=== PATIENT | female | born 1985 | race Caucasian/White ===

== ENCOUNTER 2018-03-08 10:52 | Outpatient (CLI) | payer BC, OTHER ==
[~2018-03-08] VITALS: Ht 167.6 cm; Wt 120.7 kg
[2018-03-08 10:55] VITALS: BP 136/82
[2018-03-08] MEDS ORDERED: D5 LR IV SOLUTION 1,000 ML IV ONE (11:45)
[2018-03-08 11:51] LABS: BASOPHILS % (AUTO) 0 % (0-10); EOSINOPHILS # (AUTO) 0.1 10^3/uL (0.0-0.3); EOSINOPHILS % (AUTO) 1 % (0-10); HEMATOCRIT 31 % (35-52); LYMPHOCYTES # (AUTO) 2.6 X 10^3 (1.0-4.0); LYMPHOCYTES % (AUTO) 22 % (12-44); MEAN CORPUSCULAR HEMOGLOBIN 30 PG (25-34); MEAN CORPUSCULAR HGB CONC 36 G/DL (32-36); MEAN CORPUSCULAR VOLUME 84 FL (80-99); MONOCYTES # (AUTO) 0.8 X 10^3 (0.0-1.0); MONOCYTES % (AUTO) 7 % (0-12); NEUTROPHILS # (AUTO) 8.1 X 10^3 (1.8-7.8); NEUTROPHILS % (AUTO) 70 % (42-75); PLATELET COUNT 316 10^3/uL (130-400); RED BLOOD COUNT 3.69 10^6/uL (4.35-5.85); RED CELL DISTRIBUTION WIDTH 13.5 % (10.0-14.5); WHITE BLOOD COUNT 11.5 10^3/uL (4.3-11.0)
[2018-03-08 11:52] LABS: BILIRUBIN,URINE NEGATIVE (NEGATIVE); CLARITY,URINE CLEAR; COLOR,URINE YELLOW; GLUCOSE, URINE (UA) NEGATIVE (NEGATIVE); KETONES,URINE NEGATIVE (NEGATIVE); LEUKOCYTE ESTERASE ,URINE NEGATIVE (NEGATIVE); NITRITE,URINE NEGATIVE (NEGATIVE); PH,URINE 5 (5-9); PROTEIN,URINE 1+ (NEGATIVE); UROBILINOGEN,URINE 1 MG/DL (NORMAL)
[2018-03-08 12:14] LABS: BACTERIA,URINE NEGATIVE /HPF; RBC,URINE 25-50 /HPF
[2018-03-08 12:15] LABS: ALANINE AMINOTRANSFERASE 11 U/L (0-55); ALBUMIN 3.5 GM/DL (3.2-4.5); ALKALINE PHOSPHATASE 69 U/L (40-136); BILIRUBIN,TOTAL 0.2 MG/DL (0.1-1.0); BUN/CREATININE RATIO 17; CALCIUM 9.2 MG/DL (8.5-10.1); CARBON DIOXIDE 24 MMOL/L (21-32); CHLORIDE 107 MMOL/L (98-107); GFR ESTIMATED > 60; GLUCOSE 75 MG/DL (70-105); SODIUM 139 MMOL/L (135-145); TOTAL PROTEIN 6.5 GM/DL (6.4-8.2)
--- NOTE | 2018-03-08 13:17 | Diagnostic Imaging Report ---
INDICATION: Left flank pain with as well as hematuria. FINDINGS: Left kidney measures 11.2 x 5.9 x 5.6 cm. The cortical thickness and echogenicity is normal. There are no calculi identified. No hydronephrosis is seen. IMPRESSION: Unremarkable left renal ultrasound. Dictated by: Dictated on workstation # [id number]
[2018-03-08] MEDS ORDERED: CALC1TAB PO (13:36)
[2018-03-08] MEDS ORDERED: MULT1TAB69 PO (13:36)
[2018-03-08] MEDS ORDERED: PNV11TAB5 PO (13:36)
[2018-03-08] MEDS ORDERED: FLU QUADRIvalent (5+ YOA) 2018-2019 (AFLURIA) 0.5 ML IM ONE (14:15)
--- NOTE | 2018-03-09 16:17 | Physician Query-Final Dx ---
DESTINY SANTO 03/09/18 1617: Clinic Account Progress/Dx Physician Query: Please give diagnosis Please provide dx and weeks of gestation. Date of Service Mar 08, 2018 at 10:52 RASHMI SMALLS MD 03/10/18 0751: Clinic Account Progress/Dx DIAGNOSIS: Diagnosis Renal colic at 24 weeks gestation DESTINY SANTO Mar 09, 2018 16:17 RASHMI SMALLS MD Mar 10, 2018 07:51
== END 2018-03-08 14:11 | disposition home or self-care (01) ==
LOC: WSo 10:52 → LDRP 10:52 → WSo 14:11
PROVIDERS: ATTEND Obstetrics & Gynecology
DX: O99.89 Other specified diseases and conditions complicating pregnancy, childbirth and the puerperium (principal); N23 Unspecified renal colic; Z3A.24 24 weeks gestation of pregnancy
CPT/HCPCS: 36415; 76775; 80053; 81000; 85025; 87088; 96360; 96361; 99214

== ENCOUNTER → 2018-06-16 | Outpatient (CLI) | payer BC ==
[~2018-06-16] MED LIST: CALC1TAB PO; MULT1TAB69 PO; PNV11TAB5 PO
== END ==
LOC: LABNPT 10:08
PROVIDERS: ATTEND Obstetrics & Gynecology
DX: O14.03 Mild to moderate pre-eclampsia, third trimester (principal)
CPT/HCPCS: 82570; 84156

== ENCOUNTER 2018-06-23 07:00 | Inpatient (IN) | payer BC ==
[~2018-06-23] VITALS: Ht 167.6 cm; Wt 128.9 kg
--- NOTE | 2018-06-23 07:00 | NUR ---
KAITLYNN LU presented to unit via ambulation from home, accompanied by S.O., for INDUCTION OF LABOR. KAITLYNN LU weighed, gowned, voided, and to bed. EFHM and TOCO applied, VS taken. KAITLYNN LU oriented to bed controls, call light, TV, heat, and A/C controls.
[2018-06-23 07:20] VITALS: BP 109/62
[2018-06-23] MEDS ORDERED: D5 LR IV SOLUTION 1,000 ML IV ONE ×2 (07:24→12:02)
--- OUTSIDE RECORDS SUMMARY | 2018-06-23 07:24 | XMS REPORT | CCD ---
Author Author ENEDINA VIGIL Unknown Address [address] [facility] [address] [place] [id number] Care Team Providers Care Imaging Assistant Name Role Phone EDMUND JAMISON DO Attphys KEVIN KAUR, REMA Easley J., LEA NASST S., RAQUEL RAMIREZ NASST M., PAMELA Farrell NASST P., PARRISH NASST K., SHI Farrell NASST S., GRACIE Aguiar NASST Vital Signs Vital Sign Value Unit Date/Time Recent/Initial? Weight Measured 299.83 lbs 11/01/2015 17:30 Initial VS Height 66 in 11/01/2015 17:30 Initial VS BMI (Body Mass Index) 48.39 kg/m^2 11/01/2015 17:30 Initial VS BSA (Body Surface Area) 2.52 m^2 11/01/2015 17:30 Initial VS BP Systolic 111 mmHg 11/01/2015 17:30 Initial VS BP Diastolic 71 mmHg 11/01/2015 17:30 Initial VS Respiratory Rate 18 bpm 11/01/2015 17:30 Initial VS Heart Rate 101 bpm 11/01/2015 17:30 Initial VS O2 % BldC Oximetry 100 % 11/01/2015 17:30 Initial VS Body Temperature 99.9 degrees 11/01/2015 17:30 Initial VS BP Systolic 117 mmHg 11/03/2015 15:42 Most Recent VS BP Diastolic 78 mmHg 11/03/2015 15:42 Most Recent VS Respiratory Rate 18 bpm 11/03/2015 15:42 Most Recent VS Heart Rate 67 bpm 11/03/2015 15:42 Most Recent VS O2 % BldC Oximetry 96 % 11/03/2015 15:42 Most Recent VS Body Temperature 97.6 degrees 11/03/2015 15:42 Most Recent VS Allergies Allergy Code Allergy Type Reaction Status No Known Drug Allergies 0 No known drug allergies Active Procedures Procedure Code Procedure Type Date Resection of Appendix, Percutaneous Endoscopic Approach [id number] ICD-10 PCS 11/02/2015 CT ABD AND PELVIS W/CONTRAST 329168224 SNOMED CT 2015 COMPREHENSIVE METABOLIC PANEL 088600959 SNOMED CT 2015 CBC W/ AUTO DIFF (RFLX MAN DIFF IF IND) 7627836 SNOMED CT 11/03/2015 PATHOLOGY ORDER [id number] SNOMED CT 11/02/2015 COMPREHENSIVE METABOLIC PANEL 513145227 SNOMED CT 2015 CBC W/ AUTO DIFF (RFLX MAN DIFF IF IND) 3613969 SNOMED CT 11/02/2015 TEST [id number] [facility] CT 11/01/2015 UA ROUTINE C&S IF IND 384949831 SNOMED CT 11/01/2015 C REACTIVE PROTEIN 86277803 SNOMED CT 11/01/[address] 11/01/2015 [facility] COMPREHENSIVE METABOLIC PANEL 751114315 SNOMED CT 2015 CBC W/ AUTO DIFF (RFLX MAN DIFF IF IND) 5293131 SNOMED CT 11/01/2015 INCENTIVE SPIROMETRY EA [address] ^CBC W/AUTO DIFF 3899228 SNOMED CT 11/03/2015 ^CBC W/AUTO DIFF 7060567 SNOMED CT 11/02/2015 ^UA WITH MICRO 843937008 SNOMED CT 11/01/2015 ^CBC W/AUTO DIFF 2939214 SNOMED CT 11/01/2015 LOCM 300-349 MG/ML, PER ML 882152649 SNOMED CT 11/01/2015 OXYGEN/HOUR 559446112 SNOMED CT 11/03/2015 OXYGEN/HOUR 439400964 SNOMED CT 11/02/2015 History of Immunizations Unknown or Not Available. Problems Problem Code Start Date Resolved Date Status Acute appendicitis 79659050 11/01/2015 Active Status post bariatric surgery 708131633 11/02/2015 Active Results COMPREHENSIVE METABOLIC PANEL - Collect Date/Time: 11/03/2015 06:35 Test Name Code Test Result Test Units Test Ref Range GLUCOSE 2345-7 169 MG/DL L=70 H=100 SODIUM 2951-2 141 MEQ/L L=135 H=148 POTASSIUM 2823-3 4.4 MEQ/L L=3.5 H=5.3 CHLORIDE 2075-0 111 MEQ/L L=96 H=110 CO2 2028-9 21 MEQ/L L=22 H=29 BUN 3094-0 6 MG/DL L=8 H=22 CREATININE 2160-0 0.7 MG/DL L=0.6 H=1.6 SGOT/AST 1920-8 21 IU/L L=10 H=40 SGPT/ALT 1742-6 42 IU/L L=8 H=54 ALK PHOS 6768-6 76 IU/L L=35 H=115 TOTAL PROTEIN 2885-2 5.9 G/DL L=5.5 H=8.5 ALBUMIN 1751-7 3.3 G/DL L=3.1 H=5.4 TOTAL BILI 1975-2 0.3 MG/DL L=0.0 H=1.5 CALCIUM 32991-1 8.8 MG/DL L=8.2 H=10.6 AGE 30 yrs GFR NonAA 98 GFR AA 119 eGFR >60 N/A eGFR AA* >60 N/A COMPREHENSIVE METABOLIC PANEL - Collect Date/Time: 11/02/2015 06:25 Test Name Code Test Result Test Units Test Ref Range GLUCOSE 2345-7 83 MG/DL L=70 H=100 SODIUM 2951-2 142 MEQ/L L=135 H=148 POTASSIUM 2823-3 4.0 MEQ/L L=3.5 H=5.3 CHLORIDE 2075-0 110 MEQ/L L=96 H=110 CO2 2028-9 23 MEQ/L L=22 H=29 BUN 3094-0 5 MG/DL L=8 H=22 CREATININE 2160-0 0.7 MG/DL L=0.6 H=1.6 SGOT/AST 1920-8 23 IU/L L=10 H=40 SGPT/ALT 1742-6 42 IU/L L=8 H=54 ALK PHOS 6768-6 86 IU/L L=35 H=115 TOTAL PROTEIN 2885-2 5.2 G/DL L=5.5 H=8.5 ALBUMIN 1751-7 3.3 G/DL L=3.1 H=5.4 TOTAL BILI 1975-2 0.7 MG/DL L=0.0 H=1.5 CALCIUM 52938-1 8.3 MG/DL L=8.2 H=10.6 AGE 30 yrs GFR NonAA 98 GFR AA 119 eGFR >60 N/A eGFR AA* >60 N/A COMPREHENSIVE METABOLIC PANEL - Collect Date/Time: 11/01/2015 12:00 Test Name Code Test Result Test Units Test Ref Range GLUCOSE 2345-7 88 MG/DL L=70 H=100 SODIUM 2951-2 144 MEQ/L L=135 H=148 POTASSIUM 2823-3 3.7 MEQ/L L=3.5 H=5.3 CHLORIDE 2075-0 105 MEQ/L L=96 H=110 CO2 2028-9 26 MEQ/L L=22 H=29 BUN 3094-0 11 MG/DL L=8 H=22 CREATININE 2160-0 0.8 MG/DL L=0.6 H=1.6 SGOT/AST 1920-8 31 IU/L L=10 H=40 SGPT/ALT 1742-6 56 IU/L L=8 H=54 ALK PHOS 6768-6 99 IU/L L=35 H=115 TOTAL PROTEIN 2885-2 7.0 G/DL L=5.5 H=8.5 ALBUMIN 1751-7 4.1 G/DL L=3.1 H=5.4 TOTAL BILI 1975-2 0.5 MG/DL L=0.0 H=1.5 CALCIUM 67497-1 9.2 MG/DL L=8.2 H=10.6 AGE 30 yrs GFR NonAA 84 GFR AA 102 eGFR >60 N/A eGFR AA* >60 N/A LIPASE - Collect Date/Time: 11/01/2015 12:00 Test Name Code Test Result Test Units Test Ref Range LIPASE 3040-3 54 U/L L=8 H=78 CBC W/ AUTO DIFF (RFLX MAN DIFF IF IND) - Collect Date/Time: 11/03/2015 06:35 Test Name Code Test Result Test Units Test Ref Range WBC 70940-3 11.7 TH/CMM L=4.5 H=10.8 RBC 789-8 4.07 ML/CMM L=4.20 H=5.40 HGB 718-7 11.1 G/DL L=12.0 H=16.0 HCT 4544-3 36.1 % L=37.0 H=47.0 MCV 89 FL L=81 H=99 MCH 27.3 PG L=27.0 H=33.0 MCHC 30.7 G/DL L=31.0 H=36.0 RDW SD 47 FL L=36 H=50 RDW CV 14.5 % L=0.0 H=14.8 MPV 10.4 FL L=9.3 H=12.5 PLT 777-3 269 TH/CMM L=130 H=440 NRBC# 0.00 TH/CMM L=0.00 H=0.00 NRBC% 0.0 /100WBC L=0.0 H=2.0 %NEUT 85.4 % %LYMP 10.1 % %MONO 4.1 % %EOS 0.0 % %BASO 0.1 % #NEUT 10.01 TH/CMM L=2.10 H=8.20 #LYMP 1.19 TH/CMM L=0.90 H=5.20 #MONO 0.48 TH/CMM L=0.16 H=1.00 #EOS 0.00 TH/CMM L=0.00 H=0.80 #BASO 0.01 TH/CMM L=0.00 H=0.20 MANUAL DIFF NOT IND N/A CBC W/ AUTO DIFF (RFLX MAN DIFF IF IND) - Collect Date/Time: 11/02/2015 06:25 Test Name Code Test Result Test Units Test Ref Range WBC 29367-3 6.4 TH/CMM L=4.5 H=10.8 RBC 789-8 4.19 ML/CMM L=4.20 H=5.40 HGB 718-7 11.4 G/DL L=12.0 H=16.0 HCT 4544-3 36.5 % L=37.0 H=47.0 MCV 87 FL L=81 H=99 MCH 27.2 PG L=27.0 H=33.0 MCHC 31.2 G/DL L=31.0 H=36.0 RDW SD 46 FL L=36 H=50 RDW CV 14.6 % L=0.0 H=14.8 MPV 10.2 FL L=9.3 H=12.5 PLT 777-3 235 TH/CMM L=130 H=440 NRBC# 0.00 TH/CMM L=0.00 H=0.00 NRBC% 0.0 /100WBC L=0.0 H=2.0 %NEUT 53.7 % %LYMP 34.2 % %MONO 8.5 % %EOS 2.8 % %BASO 0.5 % #NEUT 3.41 TH/CMM L=2.10 H=8.20 #LYMP 2.17 TH/CMM L=0.90 H=5.20 #MONO 0.54 TH/CMM L=0.16 H=1.00 #EOS 0.18 TH/CMM L=0.00 H=0.80 #BASO 0.03 TH/CMM L=0.00 H=0.20 MANUAL DIFF NOT IND N/A CBC W/ AUTO DIFF (RFLX MAN DIFF IF IND) - Collect Date/Time: 11/01/2015 12:00 Test Name Code Test Result Test Units Test Ref Range WBC 79775-3 11.5 TH/CMM L=4.5 H=10.8 RBC 789-8 4.85 ML/CMM L=4.20 H=5.40 HGB 718-7 13.0 G/DL L=12.0 H=16.0 HCT 4544-3 41.3 % L=37.0 H=47.0 MCV 85 FL L=81 H=99 MCH 26.8 PG L=27.0 H=33.0 MCHC 31.5 G/DL L=31.0 H=36.0 RDW SD 45 FL L=36 H=50 RDW CV 14.6 % L=0.0 H=14.8 MPV 10.0 FL L=9.3 H=12.5 PLT 777-3 296 TH/CMM L=130 H=440 NRBC# 0.00 TH/CMM L=0.00 H=0.00 NRBC% 0.0 /100WBC L=0.0 H=2.0 %NEUT 80.2 % %LYMP 13.5 % %MONO 4.4 % %EOS 1.3 % %BASO 0.3 % #NEUT 9.22 TH/CMM L=2.10 H=8.20 #LYMP 1.55 TH/CMM L=0.90 H=5.20 #MONO 0.50 TH/CMM L=0.16 H=1.00 #EOS 0.15 TH/CMM L=0.00 H=0.80 #BASO 0.03 TH/CMM L=0.00 H=0.20 MANUAL DIFF NOT IND N/A UA ROUTINE C&S IF IND - Collect Date/Time: 11/01/2015 14:16 Test Name Code Test Result Test Units Test Ref Range COLOR YELLOW N/A NL: YELLOW APPEARANCE CLOUDY N/A NL: CLEAR SPEC GRAV >=1.030 N/A NL: 1.002 - 1.022 pH 5.5 N/A NL: 5 - 9 PROTEIN NEGATIVE N/A NL: NEGATIVE mg/dl GLUCOSE NEGATIVE N/A NL: NEGATIVE mg/dl KETONE >=80 N/A NL: NEGATIVE mg/dl BILIRUBIN SMALL N/A NL: NEGATIVE BLOOD NEGATIVE N/A NL: NEGATIVE NITRITE NEGATIVE N/A NL: NEGATIVE LEUK SCREEN NEGATIVE N/A NL: NEGATIVE MICRO INDICATED? SEE BELOW N/A WBC/HPF 0-5 N/A NL: NEGATIVE RBC/HPF NEGATIVE N/A NL: NEGATIVE CASTS/LPF NEGATIVE N/A NL: NEGATIVE CRYSTALS NEGATIVE N/A NL: NEGATIVE MUCOUS THRDS 1+ N/A NL: NEGATIVE BACTERIA FEW N/A NL: NEGATIVE EPITH CELLS 3+++ SQUAMOUS N/A NL: NEGATIVE TRICHOMONAS NEGATIVE N/A NL: NEGATIVE YEAST NEGATIVE N/A NL: NEGATIVE CULT SET UP? NO N/A C REACTIVE PROTEIN - Collect Date/Time: 11/01/2015 12:00 Test Name Code Test Result Test Units Test Ref Range C REACTIVE PROTEIN 1988-5 1.5 MG/DL L=0.0 H= 1.0 TEST - Collect Date/Time: 11/01/2015 12:00 Test Name Code Test Result Test Units Test Ref Range TEST 8-8 NEGATIVE N/A AMYLASE - Collect Date/Time: 11/01/2015 12:00 Test Name Code Test Result Test Units Test Ref Range AMYLASE 1798-8 69 IU/L L=25 H=125 Active Medications Medications Administered During Visit Medication Dose Units Frequency Route Date/ Time of Last Dose NS 1000 ML IV [PREDEFINED] (7983) CONT IV 11/03/2015 03:04 ZOSYN 3.375 GM IV [PREDEFINED] Q6H 10:16 FENTANYL AMP :50 mcg/ml 2ML AMP 50 MCG PRN Q 1 HR IVP 11/02/2015 02:47 MORPHINE INJ: 2MG/ML 1 ML SYRINGE 2 MG PRN IVP 11/02/2015 15:41 NORCO [HYDROCODONE/APAP] 10/325MG TAB 1 TAB PRN PO 11/03/2015 17:38 ONDANSETRON [ZOFRAN] INJ 4 MG/2 ML VIAL 4 MG PRN Q 4 HRS SIVP 11/02/2015 13:50 Encounters Encounter Diagnosis Diagnosis Code Start Date Unspecified acute appendicitis K3580 11/01/2015 Social History Smoking Status Code Start Date End Date Current some day smoker [id number] Patient Decision Aids Unknown or Not Available. Discharge Instructions You were admitted to [facility] on 11/01/2015 16:20 with a principal diagnosis of Unspecified acute appendicitis You had the following procedures done: Resection of Appendix, Percutaneous Endoscopic Approach You had the following tests done: AMYLASE C REACTIVE PROTEIN CBC W/ AUTO DIFF (RFLX MAN DIFF IF IND) CBC W/ AUTO DIFF (RFLX MAN DIFF IF IND) CBC W/ AUTO DIFF (RFLX MAN DIFF IF IND) COMPREHENSIVE METABOLIC PANEL COMPREHENSIVE METABOLIC PANEL COMPREHENSIVE METABOLIC PANEL LIPASE TEST UA ROUTINE C&S IF IND You were discharged from [facility] on 11/03/2015 18:15 Should you have any questions prior to discharge, please contact a member of your healthcare team. If you have left the hospital and have any questions, please contact your primary care physician. HOME DIET: As tolerated. ACTIVITY INSTRUCTIONS(list limitations): No heavy lifting, May Shower, AMBULATE FREQUENTLY SCRIPTS WRITTEN BY DOCTOR GIVEN TO PATIENT? LORTAB 10/325 AND LEVAQUIN 500MG FOLLOW UP CARE - SEE YOUR PHYSICIAN: FOLLOW UP WITH DR. JAMISON IN 7-10 DAY. CALL ON WEDNESDAY TO MAKE APPOINTMENT ([phone]) PRIMARY CARE PHYSICIAN OR PRACTITIONER: Edmund Jamison DO, . PERSONAL ITEMS RETURNED: Yes. INSTRUCTIONS GIVEN AND DISCHARGE TO: Patient, Spouse/SO. CHIEF COMPLAINT: STATES SHE BEGAN HAVING "CRAMPING PAIN" IN RIGHT LOWER ABDOMEN, DESCRIBES IT SIMILIAR TO MENSTRUAL CRAMPS. REPORTS HAVING CONSTIPATION OVER PAST 6 WEEKS, AND STATES SHE HAD TO GIVE HERSELF AN ENEMA YESTERDAY. Chief Complaint and Reason For Visit Chief Complaint Date of Onset ACUTE APPEND Function Status Unknown or Not Available. Plan of Care Unknown or Not Available. Referral/Transition of Care Unknown or Not Available.
--- OUTSIDE RECORDS SUMMARY | 2018-06-23 07:24 | XMS REPORT | CCD ---
Author Author LEONARD HANNA Organization Unknown Address [address] [facility] [address] [place] [address] Care Team Providers Care Sewer Digger Name Role Phone KEVIN KAUR, REMA Mueller Attphys REMA BROWN MD Prisurjamil Allergies Allergy Code Allergy Type Reaction Status No Known Drug Allergies 0 Drug allergy Active Active Medications Medication Code Dose Units Frequency Route Modification Start Date/Time Levaquin 500MG Oral Tablet 942605 500 MILLIGRAMS DAILY BY MOUTH 11/03/2015 12:03 Prescription Detail 500 MILLIGRAMS BY MOUTH DAILY X 5 DAYS HYDROcodone bitartrate-acetaminophen 10MG-325MG Oral Tablet 512996 1 TABLET NEEDED BY MOUTH 11/03/2015 12:02 Prescription Detail 1 TABLET BY MOUTH EVERY 4HRS NEEDED Multivitamin Oral Tablet 35585251348 1 EACH DAILY ORAL 11/03/2015 12:02 Prescription Detail 1 EACH ORAL DAILY Problems Problem Code Start Date Resolved Date Status Acute appendicitis 07131285 11/01/2015 Active Status post bariatric surgery 267692353 11/02/2015 Active Procedures Unknown or Not Available. Results Unknown or Not Available. Function Status Unknown or Not Available. History of Immunizations Unknown or Not Available. Plan of Treatment Unknown or Not Available. Social History Smoking Status Code Start Date End Date Current some day smoker [id number] Vital Signs Unknown or Not Available. Function Status Unknown or Not Available. Goals Unknown or Not Available. ASSESSMENTS Unknown or Not Available. Health Concerns Section Unknown or Not Available.
--- OUTSIDE RECORDS SUMMARY | 2018-06-23 07:25 | XMS REPORT ---
Author Author Eliel Kline [facility] Address [address] [place] [id number] Care Team Providers Care Kiln Door Repairer Name Role Phone Eliel Kline PCP Eliel Kline PreferredProvider Allergies and Adverse Reactions Name Reaction Notes amlodipine Plan of Treatment Planned Activity Comments Planned Date Planned Time Plan/Goal IM Injection 07/01/2014 12:00 AM Medications Active Name Start Date Estimated Completion Date SIG Comments metformin 500 mg oral tablet 07/29/2015 TAKE ONE TABLET BY MOUTH TWICE DAILY WITH MORNING AND EVENING MEALS Zyrtec-D 5-120 mg oral tablet extended release 12 hr 08/24/2017 take 1 tablet by oral route 2 times per day Name Start Date Expiration Date SIG Comments terbinafine HCl 250 mg oral tablet 05/08/2011 05/22/2011 take 1 tablet (250 mg) by oral route once daily for 14 days gabapentin 600 mg oral tablet 05/26/2011 12/22/2011 take 1 tablet (600 mg) by oral route 3 times per day for 30 days promethazine 25 mg oral tablet 02/17/2013 02/24/2013 take 1 tablet by oral route every 6 hours as needed for 7 days Tri-Sprintec (28) 0.18/0.215/0.25 mg-35 mcg (28) oral tablet 02/17/20132013 take 1 tablet by oral route once daily for 28 days atenolol 25 mg oral tablet 02/17/2013 02/12/2014 TAKE ONE TABLET BY MOUTH EVERY DAY lisinopril 20 mg oral tablet 02/17/2013 02/12/2014 TAKE ONE TABLET BY MOUTH EVERY DAY Provera 5 mg oral tablet 04/27/2014 06/06/2014 take 1 tablet by oral route QD for 10 days of each month. lisinopril 10 mg oral tablet 02/12/2015 03/14/2015 take 1 tablet (10 mg) by oral route once daily for 30 days atenolol 25 mg oral tablet 02/12/2015 03/14/2015 take 1 tablet (25 mg) by oral route once daily for 30 days metformin 500 mg oral tablet 05/15/2015 06/14/2015 take 1 tablet (500 mg) by oral route 2 times per day with morning and evening meals for 30 days Augmentin 875-125 mg oral tablet 06/12/2015 06/19/2015 take 1 tablet by oral route every 12 hours for 7 days Ortho Tri-Cyclen (28) 0.18/0.215/0.25 mg-35 mcg (28) oral tablet 06/12/2015 take 1 tablet by oral route once daily metformin 500 mg oral tablet 08/19/2015 TAKE ONE TABLET BY MOUTH TWICE DAILY WITH MORNING AND EVENING MEALS Medrol (Norman) 4 mg oral tablets,dose pack 10/06/2016 take as directed phentermine 37.5 mg oral tablet 11/13/2016 12/13/2016 take 1 tablet (37.5 mg) by oral route once daily before breakfast for 30 days Discontinued Name Start Date Discontinued Date SIG Comments hydrochlorothiazide 25 mg oral tablet 02/24/2011 05/08/2011 take 1 tablet (25 mg) by oral route once daily for 30 days amlodipine 10 mg oral tablet 04/22/2011 05/08/2011 take 1 tablet (10 mg) by oral route once daily for 30 days lisinopril 10 mg oral tablet 05/15/2015 10/06/2016 take 1 tablet (10 mg) by oral route once daily for 30 days atenolol 25 mg oral tablet 05/15/2015 10/06/2016 take 1 tablet (25 mg) by oral route once daily for 30 days omeprazole 40 mg oral capsule,delayed release(DR/EC) 10/06/2016 take 1 capsule (40 mg) by oral route once daily before a meal oxycodone 5 mg oral tablet 10/06/2016 take 1 tablet (5 mg) by oral route every 6 hours as needed Debrox 6.5 % otic drops 09/24/2015 10/06/2016 instill 5 drops in affected ear 2 times a day multivitamin oral tablet 10/06/2016 Flonase Allergy Relief 50 mcg/actuation nasal spray,suspension 10/21/20162017 spray 1 spray (50 mcg) in each nostril by intranasal route once daily gabapentin 300 mg oral capsule 08/24/2017 12/08/2017 take 1 capsule by oral route once a day (at bedtime) cyclobenzaprine 5 mg oral tablet 08/31/2017 12/08/2017 take 1 tablet (5 mg) by oral route 3 times per day for 7 days Problem List Description Status Onset Hypertension Active 12/29 Obesity Active PCOS (polycystic ovarian syndrome) Active 03/18/2015 Allergic rhinitis Active 08/30/2017 Vital Signs Date Time BP-Sys(mm[Hg] BP-Ester(mm[Hg]) HR(bpm) RR(rpm) Temp WT HT HC BMI BSA BMI Percentile O2 Sat(%) 12/08/2017 11:07:00 AM 118 mmHg 70 mmHg 113 bpm 97.9 F 251.312 lbs 66 in 40.5625 kg/m 2.304 m 100 % 08/31/2017 8:04:00 AM 130 mmHg 70 mmHg 84 bpm 97.8 F 245.5 lbs 66 in 39.62 kg/m2 2.28 m2 100 % 08/24/2017 1:01:00 PM 140 mmHg 70 mmHg 89 bpm 18 rpm 96.7 F 243 lbs 66 in 39.2208 kg/m 2.2656 m 96 % 11/13/2016 8:03:00 AM 120 mmHg 84 mmHg 81 bpm 16 rpm 96.4 F 228.375 lbs 66 in 36.86 kg/m2 2.20 m2 94 % 10/21/2016 10:32:00 AM 116 mmHg 70 mmHg 82 bpm 18 rpm 97.9 F 232.25 lbs 66 in 37.4857 kg/m 2.2149 m 99 % 10/16/2016 8:18:00 AM 120 mmHg 70 mmHg 78 bpm 16 rpm 97.2 F 234 lbs 66 in 37.77 kg/m2 2.22 m2 98 % 10/06/2016 9:31:00 AM 124 mmHg 68 mmHg 98 bpm 18 rpm 96.9 F 231 lbs 66 in 37.284 kg/m 2.2089 m 99 % 11/12/2015 10:49:00 AM 143 mmHg 97 mmHg 106 bpm 20 rpm 97 F 294 lbs 66 in 47.45 kg/m2 2.49 m2 09/24/2015 6:37:00 PM 122 mmHg 80 mmHg 104 bpm 97.2 F 320 lbs 66 in 51.6488 kg/m 2.5998 m 96 % 07/18/2015 3:03:00 PM 140 mmHg 80 mmHg 80 bpm 16 rpm 96.7 F 335 lbs 66 in 54.07 kg/m2 2.66 m2 98 % 06/12/2015 1:12:00 PM 130 mmHg 80 mmHg 115 bpm 18 rpm 97 F 346 lbs 66 in 55.8453 kg/m 2.7034 m 97 % 05/15/2015 12:59:00 PM 130 mmHg 90 mmHg 122 bpm 16 rpm 97.6 F 343 lbs 66 in 55.36 kg/m2 2.69 m2 97 % 04/15/2015 8:07:00 AM 140 mmHg 90 mmHg 98 bpm 16 rpm 97.6 F 345 lbs 66 in 55.6839 kg/m 2.6995 m 99 % 03/18/2015 9:18:00 AM 140 mmHg 88 mmHg 98 bpm 16 rpm 96.7 F 340 lbs 66 in 54.88 kg/m2 2.68 m2 95 % 02/12/2015 8:14:00 AM 150 mmHg 100 mmHg 105 bpm 18 rpm 96.7 F 342 lbs 66 in 55.1997 kg/m 2.6877 m 97 % 07/01/2014 3:02:00 PM 134 mmHg 100 mmHg 113 bpm 20 rpm 96.7 F 313 lbs 66 in 50.52 kg/m2 2.57 m2 97 % 04/26/2014 8:54:00 AM 147 mmHg 103 mmHg 100 bpm 96.4 F 313 lbs 66 in 50.519 kg/m 2.5712 m 04/12/2014 4:50:00 PM 144 mmHg 97 mmHg 106 bpm 97.9 F 310 lbs 66 in 50.03 kg/m2 2.56 m2 02/17/2013 9:07:00 AM 145 mmHg 88 mmHg 118 bpm 22 rpm 97 F 318 lbs 66 in 51.326 kg/m 2.5917 m 97 % 05/20/2011 2:15:00 PM 128 mmHg 75 mmHg 125 bpm 98.6 F 298 lbs 97 % 05/08/2011 10:01:00 AM 138 mmHg 85 mmHg 155 bpm 98.6 F 296.375 lbs 98 % 04/16/2011 4:17:00 PM 160 mmHg 98 mmHg 140 bpm 294 lbs 65 in 48.9237 kg/m 2.473 m 03/31/2011 2:52:00 PM 142 mmHg 93 mmHg 100 bpm 98.6 F 294 lbs 65 in 48.92 kg/m2 2.47 m2 03/31/2011 8:51:00 AM 130 bpm 97.5 F 293.5 lbs 99 % 03/12/2011 4:51:00 PM 122 mmHg 82 mmHg 130 bpm 97.4 F 290.25 lbs 97 % 09/16/2010 3:09:00 PM 135 mmHg 88 mmHg 142 bpm 98.1 F 307 lbs 96 % 08/29/2010 10:42:00 AM 130 mmHg 100 mmHg 136 bpm 98.6 F 304.5 lbs 96 % Social History Name Description Comments Alcohol Current some day Socially Tobacco Former smoker Social smoker UNEMPLOYEED History of Procedures Date Ordered Description Order Status 03/18/2015 12:00 AM COMPLETE CBC W/AUTO DIFF WBC Reviewed 03/18/2015 12:00 AM COMPREHEN METABOLIC PANEL Reviewed 03/31/2011 12:00 AM ASSAY THYROID STIM HORMONE Reviewed 03/31/2011 12:00 AM COMPLETE CBC AUTOMATED Reviewed 03/31/2011 12:00 AM ASSAY OF GONADOTROPIN (FSH) Reviewed 03/31/2011 12:00 AM ASSAY OF PROLACTIN Reviewed 03/31/2011 12:00 AM METABOLIC PANEL TOTAL CA Reviewed 03/31/2011 12:00 AM CLOT FACTOR XIII FIBRIN STAB Reviewed 03/31/2011 12:00 AM CLOT FACTOR XIII FIBRIN SCRN Reviewed 03/31/2011 12:00 AM CLOT FACTOR VIII VW RISTOCTN Reviewed 03/31/2011 12:00 AM PROTHROMBIN TIME Reviewed 03/31/2011 12:00 AM THROMBOPLASTIN TIME PARTIAL Reviewed 03/31/2011 12:00 AM ASSAY OF FREE TESTOSTERONE Reviewed 03/31/2011 12:00 AM ASSAY OF TOTAL TESTOSTERONE Reviewed 11/04/2015 12:00 AM EXTREMITY STUDY Reviewed 10/06/2016 12:00 AM STREP A ASSAY W/OPTIC Reviewed 05/25/2018 12:00 AM IMMUNIZATION ADMIN Reviewed 05/25/2018 12:00 AM TDAP VACCINE 7 YRS/> IM Reviewed 02/17/2013 12:00 AM URINE TEST Reviewed 04/20/2014 12:00 AM US EXAM PELVIC COMPLETE Reviewed 04/12/2014 12:00 AM COMPLETE CBC W/AUTO DIFF WBC Reviewed 04/12/2014 12:00 AM COMPREHEN METABOLIC PANEL Reviewed 04/12/2014 12:00 AM ASSAY THYROID STIM HORMONE Reviewed 04/12/2014 12:00 AM ASSAY OF PROLACTIN Reviewed 04/12/2014 12:00 AM ASSAY OF GONADOTROPIN (FSH) Reviewed 04/12/2014 12:00 AM LIPID PANEL Reviewed 04/12/2014 12:00 AM US EXAM PELVIC COMPLETE Reviewed 04/12/2014 12:00 AM US EXAM PELVIC LIMITED Reviewed 09/03/2010 12:00 AM COMPLETE CBC W/AUTO DIFF WBC Reviewed 09/03/2010 12:00 AM METABOLIC PANEL TOTAL CA Reviewed 09/03/2010 12:00 AM LIPID PANEL Reviewed 09/03/2010 12:00 AM ALANINE AMINO (ALT) (SGPT) Reviewed 09/03/2010 12:00 AM TRANSFERASE (AST) (SGOT) Reviewed 09/03/2010 12:00 AM ASSAY THYROID STIM HORMONE Reviewed 09/03/2010 12:00 AM Blood Pressure Check-no charge Reviewed 07/01/2014 12:00 AM Decadron injection Reviewed 07/01/2014 12:00 AM Depo-Medrol 40mg Reviewed 07/01/2014 12:00 AM Rocephin 1 gram [facility]#[id number] Reviewed 02/12/2015 12:00 AM Dietary Consult Reviewed Results Summary Date and Description Results 09/03/2010 10:26 AM TRIGLYCERIDES 209.0 mg/dLCHOLESTEROL 254.0 mg/dLHDL 32.0 mg /dLTOT CHOL/HDL 7.9 LDL (CALC) 180.0 mg/dLSGOT/AST 28.0 IU/LSGPT/ALT 44.0 IU/ LFREE T4 1.18 TSH 4.510 uIU/mLWBC 8.6 RBC 4.82 HGB 13.70 g/dLHCT 41.20 %MCV 86.0 fLMCH 28.40 pgMCHC 33.30 g/dLRDW SD 40 RDW CV 12.80 %MPV 9.80 fLPLT 337 NRBC# 0.00 NRBC% 0.0 %NEUT 60.30 %%LYMP 31.80 %%MONO 5.60 %%EOS 1.90 %%BASO 0.40 %#NEUT 5.16 #LYMP 2.72 #MONO 0.48 #EOS 0.16 #BASO 0.03 MANUAL DIFF NOT IND GLUCOSE 89.0 mg/dLSODIUM 141.0 mmol/LPOTASSIUM 4.10 mmol/LCHLORIDE 105.0 mmol/ LCO2 24.0 mmol/LBUN 14.0 mg/dLCREATININE 0.80 mg/dLCALCIUM 9.50 mg/dLAGE 25 GFR NonAA 87 GFR AA 105 eGFR >60 mL/min/1.73 m2eGFR AA* >60 03/31/2011 5:50 PM WBC 9.1 RBC 4.10 HGB 12.20 g/dLHCT 35.40 %MCV 86.0 fLMCH 29.80 pgMCHC 34.50 g/dLRDW SD 40 RDW CV 12.60 %MPV 9.20 fLPLT 345 NRBC# 0.00 NRBC% 0.0 %NEUT 66.50 %%LYMP 26.20 %%MONO 5.40 %%EOS 1.50 %%BASO 0.40 %#NEUT 6.02 #LYMP 2.37 #MONO 0.49 #EOS 0.14 #BASO 0.04 MANUAL DIFF NOT IND PROTIME 9.90 secsINR 1.0 PTT 23.0 secsFSH 4.90 mIU/mLTSH 1.320 uIU/mLGLUCOSE 93.0 mg/ dLSODIUM 141.0 mmol/LPOTASSIUM 3.30 mmol/LCHLORIDE 103.0 mmol/LCO2 25.0 mmol/ LBUN 12.0 mg/dLCREATININE 0.80 mg/dLCALCIUM 9.70 mg/dLAGE 25 GFR NonAA 87 GFR AA 105 eGFR >60 mL/min/1.73 m2eGFR AA* >60 04/12/2014 5:55 PM WBC 10.5 RBC 4.86 HGB 12.80 g/dLHCT 38.50 %MCV 79.0 fLMCH 26.30 pgMCHC 33.20 g/dLRDW SD 38 RDW CV 13.40 %MPV 9.0 fLPLT 405 NRBC# 0.00 NRBC % 0.0 %NEUT 70.90 %%LYMP 24.0 %%MONO 3.70 %%EOS 1.10 %%BASO 0.30 %#NEUT 7.41 # LYMP 2.51 #MONO 0.39 #EOS 0.12 #BASO 0.03 MANUAL DIFF NOT IND TRIGLYCERIDES 213.0 mg/dLCHOLESTEROL 240.0 mg/dLHDL 37.0 mg/dLTOT CHOL/HDL 6.5 LDL (CALC) 160.0 mg/dLGLUCOSE 86.0 mg/dLSODIUM 141.0 mmol/LPOTASSIUM 4.0 mmol/LCHLORIDE 105.0 mmol/LCO2 23.0 mmol/LBUN 14.0 mg/dLCREATININE 0.80 mg/dLSGOT/AST 18.0 IU/ LSGPT/ALT 20.0 IU/LALK PHOS 94.0 IU/LTOTAL PROTEIN 8.0 g/dLALBUMIN 4.30 g/ dLTOTAL BILI 0.50 mg/dLCALCIUM 9.80 mg/dLAGE 28 GFR NonAA 85 GFR AA 103 eGFR 60 eGFR AA* 60 FSH 4.50 mIU/mLTSH 2.440 uIU/mLProlactin 7.60 ng/mL 03/19/2015 7:25 AM WBC 9.4 RBC 4.83 HGB 13.40 g/dLHCT 40.80 %MCV 85.0 fLMCH 27.70 pgMCHC 32.80 g/dLRDW SD 42 RDW CV 13.60 %MPV 9.30 fLPLT 322 NRBC# 0.00 NRBC% 0.0 %NEUT 55.30 %%LYMP 37.40 %%MONO 5.30 %%EOS 1.60 %%BASO 0.40 %#NEUT 5.17 #LYMP 3.50 #MONO 0.50 #EOS 0.15 #BASO 0.04 MANUAL DIFF NOT IND GLUCOSE 87.0 mg/dLSODIUM 141.0 mmol/LPOTASSIUM 3.90 mmol/LCHLORIDE 105.0 mmol/LCO2 25.0 mmol/LBUN 13.0 mg/dLCREATININE 0.80 mg/dLSGOT/AST 25.0 IU/LSGPT/ALT 39.0 IU/ LALK PHOS 100.0 IU/LTOTAL PROTEIN 7.70 g/dLALBUMIN 4.20 g/dLTOTAL BILI 0.30 mg/ dLCALCIUM 9.30 mg/dLAGE 29 GFR NonAA 85 GFR AA 103 eGFR >60 mL/min/1.73meGFR AA* >60 10/06/2016 9:55 AM STREP SCREEN NEGATIVE History Of Immunizations Name Date Admin Mfg Name Mfg Code Trade Name Lot# Route Inj Vis Given Vis Pub CVX Tdap 05/25/2018 [employer] SKB BOOSTRIX [id number] Intramuscular Left Deltoid 06/08/2018 06/21/2017 115 History of Past Illness Name Date of Onset Comments Hypertension 12/29 Obesity Abnormal Uterine Bleeding 03/31/2011 PCOS (polycystic ovarian syndrome) 03/18/2015 Hypertension, Benign Essential Sep 03 2010 10:11AM Obesity Sep 03 2010 10:11AM General Medical Exam, Adult Aug 29 2010 10:43AM Multiple Seborrheic Keratosis Aug 29 2010 10:43AM Allergic rhinitis 08/30/2017 Dysfunctional Uterine Bleeding Mar 12 2011 4:54PM Abnormal Uterine Bleeding Mar 31 2011 2:56PM Hypertension Mar 31 2011 2:56PM Obesity Mar 31 2011 2:56PM Tachycardia Apr 16 2011 4:16PM Abnormal Uterine Bleeding Apr 16 2011 4:16PM Hypertension Apr 16 2011 4:16PM Obesity Apr 16 2011 4:16PM Hypertension May 20 2011 2:12PM Abnormal Uterine Bleeding Mar 31 2011 8:49AM Allergic reaction to medication May 08 2011 9:57AM Routine gynecological examination Dec 01 2011 4:05PM Screening Examination for Breast Cancer Dec 01 2011 4:05PM Pap Smear Dec 01 2011 4:05PM Hypertension Feb 17 2013 9:10AM Nausea Feb 17 2013 9:10AM Contraception, Oral Prescription Feb 17 2013 9:10AM Abnormal Uterine Bleeding Apr 12 2014 4:59PM Obesity, morbid, BMI 50 or higher Apr 12 2014 4:59PM Abnormal uterine bleeding Apr 13 2014 12:52PM Abnormal Uterine Bleeding Apr 26 2014 8:59AM Hypertension Apr 26 2014 8:59AM Obesity Apr 26 2014 8:59AM Maxillary Sinusitis, Acute Jul 01 2014 3:06PM Throat Pain Jul 01 2014 3:06PM Cerumen impaction, bilateral Jul 01 2014 3:06PM Hypertension Feb 12 2015 8:17AM BMI 50.0-59.9, adult Feb 12 2015 8:17AM Dietary counseling and surveillance Feb 12 2015 8:17AM Hypertension Mar 18 2015 9:20AM Obesity Mar 18 2015 9:20AM PCOS (polycystic ovarian syndrome) Mar 18 2015 9:20AM BMI 50.0-59.9, adult Mar 18 2015 9:20AM Dietary counseling and surveillance Mar 18 2015 9:20AM Hypertension Apr 15 2015 8:09AM Obesity Apr 15 2015 8:09AM PCOS (polycystic ovarian syndrome) Apr 15 2015 8:09AM BMI 50.0-59.9, adult Apr 15 2015 8:09AM Dietary counseling and surveillance Apr 15 2015 8:09AM Essential hypertension May 15 2015 1:01PM Morbid obesity, unspecified obesity type May 15 2015 1:01PM PCOS (polycystic ovarian syndrome) May 15 2015 1:01PM BMI 50.0-59.9, adult May 15 2015 1:01PM Dietary counseling and surveillance May 15 2015 1:01PM Essential hypertension Jun 12 2015 1:14PM Morbid obesity, unspecified obesity type Jun 12 2015 1:14PM PCOS (polycystic ovarian syndrome) Jun 12 2015 1:14PM BMI 50.0-59.9, adult Jun 12 2015 1:14PM Dietary counseling and surveillance Jun 12 2015 1:14PM Acute frontal sinusitis, recurrence not specified Jun 12 2015 1:14PM Essential hypertension Jul 18 2015 3:05PM Morbid obesity, unspecified obesity type Jul 18 2015 3:05PM PCOS (polycystic ovarian syndrome) Jul 18 2015 3:05PM BMI 50.0-59.9, adult Jul 18 2015 3:05PM Dietary counseling and surveillance Jul 18 2015 3:05PM Impacted cerumen of left ear Sep 24 2015 6:44PM Leg pain, posterior, right Nov 04 2015 4:27PM Sore throat Oct 06 2016 9:33AM Post-nasal drainage Oct 21 2016 10:34AM Seasonal allergic rhinitis due to other allergic trigger Oct 21 2016 10:34AM Polyphagia Oct 16 2016 8:19AM Dietary counseling and surveillance Oct 16 2016 8:19AM BMI 37.0-37.9, adult Oct 16 2016 8:19AM Polyphagia Nov 13 2016 8:05AM Dietary counseling and surveillance Nov 13 2016 8:05AM BMI 36.0-36.9,adult Nov 13 2016 8:05AM Allergic rhinitis, unspecified seasonality, unspecified trigger Aug 24 2017 1 :04PM Lumbar pain with radiation down right leg Aug 24 2017 1:04PM Mechanical low back pain Aug 31 2017 8:10AM Trochanteric bursitis of right hip Aug 31 2017 8:10AM Spasm of muscle of lower back Aug 31 2017 8:10AM Pelvic girdle weakness Aug 31 2017 8:10AM Strain of back, initial encounter Dec 08 2017 11:11AM Mechanical low back pain Dec 08 2017 11:11AM Trochanteric bursitis of right hip Dec 08 2017 11:11AM Spasm of muscle of lower back Dec 08 2017 11:11AM Pelvic girdle weakness Dec 08 2017 11:11AM Need for Tdap vaccination Jun 08 2018 3:22PM Payers Insurance Name Company Name Plan Name Plan Number Policy Number Policy Group Number Start Date BCBS Bcbs [facility] [id number] N/A [facility] [id number] Sunday, 2010 [facility] [id number] [facility] [id number] N/A [facility] [id number] [facility] [id number] N/A History of Encounters Visit Date Visit Type Provider 05/25/2018 Office visit Eliel Kline APRN 12/08/2017 Office visit Cam Marieea DO 08/31/2017 Office visit Cam Bermudez DO 08/24/2017 Office visit Eliel Kline APRN 11/13/2016 Office visit Eliel Kline APRN 10/21/2016 Office visit Charlotte Rossi DIAGRAM CLERK 10/16/2016 Office visit Eliel Kline DIAGRAM CLERK 10/06/2016 Office visit Charlotte Rossi DIAGRAM CLERK 11/12/2015 Surgery Edmund Bouman DO 11/04/2015 Hospital Edmund Bouman DO 11/04/2015 Voided Edmund Bouman DO 11/02/2015 Hospital Edmund Bouman DO 11/01/2015 Hospital Edmund Bouman DO 09/24/2015 Office visit Eliel Kline DIAGRAM CLERK 07/18/2015 Office visit Eliel Kline DIAGRAM CLERK 06/12/2015 Office visit Eliel Kline DIAGRAM CLERK 05/15/2015 Office visit Eliel Kline DIAGRAM CLERK 04/15/2015 Office visit Eliel Kline DIAGRAM CLERK 03/18/2015 Office visit Eliel Kline DIAGRAM CLERK 02/12/2015 Office visit Eliel Kline DIAGRAM CLERK 07/01/2014 Office visit Anahi Walker DIAGRAM CLERK 04/26/2014 Office visit Ishan Maloney MD 04/12/2014 Office visit 04/12/2014 Office visit Ishan Maloney MD 02/17/2013 Office visit Eliel Kline APRN 05/20/2011 Office visit Manoj Macario MD 05/08/2011 Office visit Manoj Macario MD 04/16/2011 Office visit Ishan Maloney MD 03/31/2011 Office visit 03/31/2011 Office visit Ishan Maloney MD 03/31/2011 Office visit Manoj Macario MD 03/12/2011 Office visit Manoj Macario MD 09/23/2010 Voided Manoj Macario MD 09/16/2010 Office visit Manoj Macario MD 09/03/2010 Nurse visit Manoj Macario MD 08/29/2010 Office visit Manoj Macario MD
--- OUTSIDE RECORDS SUMMARY | 2018-06-23 07:26 | XMS REPORT ---
Author Author Cam Bermudez Organization [facility] Address [address] [place] [id number] Care Team Providers Care Ambulette Driver Name Role Phone Cam Bermudez PCP Eliel Kline PreferredProvider Allergies and Adverse [...] bpm 97.2 F 320 lbs 66 in 51.65 kg/m2 2.60 m2 96 % 07/18/2015 3:03:00 PM 140 mmHg 80 mmHg 80 bpm 16 rpm 96.7 F 335 lbs 66 in 54.0699 kg/m 2.6601 m 98 % 06/12/2015 1:12:00 PM 130 mmHg 80 mmHg 115 bpm 18 rpm 97 F 346 lbs 66 in 55.85 kg/m2 2.70 m2 97 % 05/15/2015 12:59:00 PM 130 mmHg 90 mmHg 122 bpm 16 rpm 97.6 F 343 lbs 66 in 55.3611 kg/m 2.6916 m 97 % 04/15/2015 8:07:00 AM 140 mmHg 90 mmHg 98 bpm 16 rpm 97.6 F 345 lbs 66 in 55.68 kg/m2 2.70 m2 99 % 03/18/2015 9:18:00 AM 140 mmHg 88 mmHg 98 bpm 16 rpm 96.7 F 340 lbs 66 in 54.8769 kg/m 2.6799 m 95 % 02/12/2015 8:14:00 AM 150 mmHg 100 mmHg 105 bpm 18 rpm 96.7 F 342 lbs 66 in 55.20 kg/m2 2.69 m2 97 % 07/01/2014 3:02:00 PM 134 mmHg 100 mmHg 113 bpm 20 rpm 96.7 F 313 lbs 66 in 50.519 kg/m 2.5712 m 97 % 04/26/2014 8:54:00 AM 147 mmHg 103 mmHg 100 bpm 96.4 F 313 lbs 66 in 50.52 kg/m2 2.57 m2 04/12/2014 4:50:00 PM 144 mmHg 97 mmHg 106 bpm 97.9 F 310 lbs 66 in 50.0348 kg/m 2.5589 m 02/17/2013 9:07:00 AM 145 mmHg 88 mmHg 118 bpm 22 rpm 97 F 318 lbs 66 in 51.33 kg/m2 2.59 m2 97 % 05/20/2011 2:15:00 PM 128 mmHg [...] 12:00 AM STREP A ASSAY W/OPTIC Reviewed 02/17/2013 12:00 AM URINE TEST Reviewed [...] Reviewed 07/01/2014 12:00 AM Rocephin 1 gram [facility]#[id number] Reviewed 02/12/2015 12:00 AM Dietary Consult Reviewed [...] AM STREP SCREEN NEGATIVE History Of Immunizations Not available. History of Past Illness Name Date of [...] Pelvic girdle weakness Dec 08 2017 11:11AM Payers Insurance Name Company Name Plan Name Plan Number Policy Number Policy Group Number Start Date BCBS [facility] [id number] N/A [facility] Benefit Services [facility] [id number] Sunday, 2010 [facility] [id number] N/A [facility] [id number] N/A History of Encounters Visit Date Visit Type Provider 12/08/2017 Office visit Cam Bermudez DO 08/31/2017 Office visit Cam Bermudez DO 08/24/2017 Office visit Eliel Kline TAPE FOLDING MACHINE OPERATOR 11/13/2016 Office visit Eliel Kline TAPE FOLDING MACHINE OPERATOR 10/21/2016 Office visit Charlotte Rossi TAPE FOLDING MACHINE OPERATOR 10/16/2016 Office visit Eliel Kline TAPE FOLDING MACHINE OPERATOR 10/06/2016 Office visit Charlotte Rossi TAPE FOLDING MACHINE OPERATOR 11/12/2015 Surgery Edmund Bouman DO 11/04/2015 Hospital Edmund Bouman DO 11/04/2015 Voided Edmund Bouman DO 11/02/2015 Hospital Edmund Bouman DO 11/01/2015 Hospital Edmund Bouman DO 09/24/2015 Office visit Eliel Kline TAPE FOLDING MACHINE OPERATOR 07/18/2015 Office visit Eliel Kline TAPE FOLDING MACHINE OPERATOR 06/12/2015 Office visit Eliel Kline TAPE FOLDING MACHINE OPERATOR 05/15/2015 Office visit Eliel Kline TAPE FOLDING MACHINE OPERATOR 04/15/2015 Office visit Eliel Kline TAPE FOLDING MACHINE OPERATOR 03/18/2015 Office visit Eliel Kline TAPE FOLDING MACHINE OPERATOR 02/12/2015 Office visit Eliel Kline TAPE FOLDING MACHINE OPERATOR 07/01/2014 Office visit Anahi Aaron TAPE FOLDING MACHINE OPERATOR 04/26/2014 Office visit Ishan Maloney MD 04/12/2014 Office visit 04/12/2014 Office visit Ishan Maloney MD 02/17/2013 Office visit Eliel Kline TAPE FOLDING MACHINE OPERATOR 05/20/2011 Office visit Manoj Macario MD 05/08/2011 [...]
--- OUTSIDE RECORDS SUMMARY | 2018-06-23 07:26 | XMS REPORT ---
Author Author Eliel Kline [facility] Address [address] [place], [place] [id number] Care Team Providers Care Highway Commissioner Name Role Phone Eliel Kline PCP Allergies and Adverse Reactions Name Reaction Notes amlodipine Plan of Treatment Planned Activity Comments Planned Date Planned Time Plan/Goal EXTREMITY STUDY 11/04/2015 12:00 AM THER/PROPH/DIAG INJ SC/IM 07/01/2014 12:00 AM Medications Active Name Start Date Estimated Completion Date SIG Comments lisinopril 10 mg oral tablet 05/15/2015 take 1 tablet (10 mg) by oral route once daily for 30 days atenolol 25 mg oral tablet 05/15/2015 take 1 tablet (25 mg) by oral route once daily for 30 days metformin 500 mg oral tablet 07/29/2015 TAKE ONE TABLET BY MOUTH TWICE DAILY WITH MORNING AND EVENING MEALS omeprazole 40 mg oral capsule,delayed release(DR/EC) take 1 capsule (40 mg) by oral route once daily before a meal oxycodone 5 mg oral tablet take 1 tablet (5 mg) by oral route every 6 hours as needed Debrox 6.5 % otic drops 09/24/2015 instill 5 drops in affected ear 2 times a day Name Start Date Expiration Date SIG [...] TWICE DAILY WITH MORNING AND EVENING MEALS Discontinued Name Start Date Discontinued Date SIG Comments hydrochlorothiazide 25 mg oral tablet 02/24/2011 05/08/2011 take 1 tablet (25 mg) by oral route once daily for 30 days amlodipine 10 mg oral tablet 04/22/2011 05/08/2011 take 1 tablet (10 mg) by oral route once daily for 30 days Problem List Description Status Onset Hypertension Active 12/29 Obesity Active PCOS (polycystic ovarian syndrome) Active 03/18/2015 Vital Signs Date Time BP-Sys(mm[Hg] BP-Ester(mm[Hg]) HR(bpm) RR(rpm) Temp WT HT HC BMI BSA BMI Percentile O2 Sat(%) 09/24/2015 6:37:00 PM 122 mmHg 80 mmHg [...] 12:00 AM COMPLETE CBC W/AUTO DIFF WBC Returned 03/18/2015 12:00 AM COMPREHEN METABOLIC PANEL Returned 03/31/2011 12:00 AM ASSAY THYROID STIM HORMONE [...] 12:00 AM ASSAY OF TOTAL TESTOSTERONE Reviewed 02/17/2013 12:00 AM URINE TEST Reviewed 04/20/2014 12:00 AM US EXAM PELVIC COMPLETE Returned 04/12/2014 12:00 AM COMPLETE CBC W/AUTO DIFF WBC Returned 04/12/2014 12:00 AM COMPREHEN METABOLIC PANEL Returned 04/12/2014 12:00 AM ASSAY THYROID STIM HORMONE Returned 04/12/2014 12:00 AM ASSAY OF PROLACTIN Returned 04/12/2014 12:00 AM ASSAY OF GONADOTROPIN (FSH) Returned 04/12/2014 12:00 AM LIPID PANEL Returned 04/12/2014 12:00 AM US EXAM PELVIC COMPLETE [...] Reviewed 07/01/2014 12:00 AM Rocephin 1 gram [facility]#[id number] Reviewed Results Summary Data and Description Results 09/03/2010 10:26 AM TRIGLYCERIDES 209.0 mg/dLCHOLESTEROL 254.0 mg/dLHDL 32.0 mg /dLLDL (CALC) 180.0 mg/dLSGOT/AST 28.0 IU/LSGPT/ALT 44.0 IU/LTSH 4.510 uIU/ mLWBC 8.6 RBC 4.82 HGB 13.70 g/dLHCT 41.20 %MCV 86.0 fLMCH 28.40 pgMCHC 33.30 g/ dLRDW CV 12.80 %MPV 9.80 fLPLT 337 %NEUT 60.30 %%LYMP 31.80 %%MONO 5.60 %%EOS 1.90 %%BASO 0.40 %#NEUT 5.16 #LYMP 2.72 #MONO 0.48 #EOS 0.16 #BASO 0.03 GLUCOSE 89.0 mg/dLSODIUM 141.0 mmol/LPOTASSIUM 4.10 mmol/LCHLORIDE 105.0 mmol/LCO2 24.0 mmol/LBUN 14.0 mg/dLCREATININE 0.80 mg/dLCALCIUM 9.50 mg/dLeGFR >60 mL/min/1.73 m2 03/31/2011 5:50 PM WBC 9.1 RBC 4.10 HGB 12.20 g/dLHCT 35.40 %MCV 86.0 fLMCH 29.80 pgMCHC 34.50 g/dLRDW CV 12.60 %MPV 9.20 fLPLT 345 %NEUT 66.50 %%LYMP 26.20 %%MONO 5.40 %%EOS 1.50 %%BASO 0.40 %#NEUT 6.02 #LYMP 2.37 #MONO 0.49 #EOS 0.14 #BASO 0.04 PROTIME 9.90 secsINR 1.0 PTT 23.0 secsFSH 4.90 mIU/mLTSH 1.320 uIU/mLGLUCOSE 93.0 mg/dLSODIUM 141.0 mmol/LPOTASSIUM 3.30 mmol/LCHLORIDE 103.0 mmol/LCO2 25.0 mmol/LBUN 12.0 mg/dLCREATININE 0.80 mg/dLCALCIUM 9.70 mg/dLeGFR > 60 mL/min/1.73 m2 04/12/2014 5:55 PM WBC 10.5 RBC 4.86 HGB 12.80 g/dLHCT 38.50 %MCV 79.0 fLMCH 26.30 pgMCHC 33.20 g/dLRDW CV 13.40 %MPV 9.0 fLPLT 405 %NEUT 70.90 %%LYMP 24.0 % %MONO 3.70 %%EOS 1.10 %%BASO 0.30 %#NEUT 7.41 #LYMP 2.51 #MONO 0.39 #EOS 0.12 # BASO 0.03 TRIGLYCERIDES 213.0 mg/dLCHOLESTEROL 240.0 mg/dLHDL 37.0 mg/dLLDL ( CALC) 160.0 mg/dLGLUCOSE 86.0 mg/dLSODIUM 141.0 mmol/LPOTASSIUM 4.0 mmol/ LCHLORIDE 105.0 mmol/LCO2 23.0 mmol/LBUN 14.0 mg/dLCREATININE 0.80 mg/dLSGOT/ AST 18.0 IU/LSGPT/ALT 20.0 IU/LALK PHOS 94.0 IU/LTOTAL PROTEIN 8.0 g/dLALBUMIN 4.30 g/dLTOTAL BILI 0.50 mg/dLCALCIUM 9.80 mg/dLeGFR 60 FSH 4.50 mIU/mLTSH 2.440 uIU/mLProlactin 7.60 ng/mL 03/19/2015 7:25 AM WBC 9.4 RBC 4.83 HGB 13.40 g/dLHCT 40.80 %MCV 85.0 fLMCH 27.70 pgMCHC 32.80 g/dLRDW CV 13.60 %MPV 9.30 fLPLT 322 %NEUT 55.30 %%LYMP 37.40 %%MONO 5.30 %%EOS 1.60 %%BASO 0.40 %#NEUT 5.17 #LYMP 3.50 #MONO 0.50 #EOS 0.15 #BASO 0.04 GLUCOSE 87.0 mg/dLSODIUM 141.0 mmol/LPOTASSIUM 3.90 mmol/ LCHLORIDE 105.0 mmol/LCO2 25.0 mmol/LBUN 13.0 mg/dLCREATININE 0.80 mg/dLSGOT/ AST 25.0 IU/LSGPT/ALT 39.0 IU/LALK PHOS 100.0 IU/LTOTAL PROTEIN 7.70 g/ dLALBUMIN 4.20 g/dLTOTAL BILI 0.30 mg/dLCALCIUM 9.30 mg/dLeGFR >60 mL/min/1.73m History Of Immunizations Not available. History of Past Illness Name Date of Onset Comments Hypertension 12/29 Obesity Abnormal Uterine Bleeding 03/31/2011 PCOS (polycystic ovarian syndrome) 03/18/2015 Hypertension, Benign Essential Sep 03 2010 10:11AM Obesity Sep 03 2010 10:11AM General Medical Exam, Adult Aug 29 2010 10:43AM Multiple Seborrheic Keratosis Aug 29 2010 10:43AM Dysfunctional Uterine Bleeding Mar 12 2011 4:54PM [...] pain, posterior, right Nov 04 2015 4:27PM Payers Insurance Name Company Name Plan Name Plan Number Policy Number Policy Group Number Start Date [facility] [id number] N/A [facility] Benefit Services [facility] Benefit Services [id number] Sunday, 2010 [facility] [id number] N/A [facility] [id number] N/A History of Encounters Visit Date Visit Type Provider 09/24/2015 Office visit Eliel Kline DIRECT RESPONSE CONSULTANT 07/18/2015 Office visit Eliel Kline DIRECT RESPONSE CONSULTANT 06/12/2015 Office visit Eliel Kline DIRECT RESPONSE CONSULTANT 05/15/2015 Office visit Eliel Kline DIRECT RESPONSE CONSULTANT 04/15/2015 Office visit Eliel Kline DIRECT RESPONSE CONSULTANT 03/18/2015 Office visit Eliel Kline DIRECT RESPONSE CONSULTANT 02/12/2015 Office visit Eliel Kline DIRECT RESPONSE CONSULTANT 07/01/2014 Office visit Anahi Walker DIRECT RESPONSE CONSULTANT 04/26/2014 Office visit Ishan Maloney MD 04/12/2014 Office visit 04/12/2014 Office visit Ishan Maloney MD 02/17/2013 Office visit Eliel Kline DIRECT RESPONSE CONSULTANT 05/20/2011 Office visit Manoj Macario MD 05/08/2011 [...]
--- OUTSIDE RECORDS SUMMARY | 2018-06-23 07:27 | XMS REPORT ---
Author Author Eliel Kline [facility] Address [address] [place], [place] [phone] Care Team Providers Care Prep Manager Name Role Phone Eliel Kline PCP Allergies and Adverse Reactions Name Reaction Notes amlodipine Plan of Treatment Planned Activity Comments Planned Date Planned Time Plan/Goal THER/PROPH/DIAG INJ SC/IM 07/01/2014 12:00 AM Medications [...] morning and evening meals for 30 days Name Start Date Expiration Date SIG Comments [...] oral route once daily for 30 days Discontinued Name Start Date [...] HC BMI BSA BMI Percentile O2 Sat(%) 05/15/2015 12:59:00 PM 130 mmHg 90 mmHg [...] mmHg 140 bpm 294 lbs 65 in 48.92 kg/m2 2.47 m2 03/31/2011 2:52:00 PM 142 mmHg 93 mmHg 100 bpm 98.6 F 294 lbs 65 in 48.9237 kg/m 2.473 m 03/31/2011 8:51:00 AM 130 bpm 97.5 F [...] Reviewed 07/01/2014 12:00 AM Rocephin 1 gram [facility]#[id number] Reviewed Results Summary Data and Description Results [...] counseling and surveillance May 15 2015 1:01PM Payers Insurance Name Company Name Plan Name Plan Number Policy Number Policy Group Number [id number] N[facility]A [facility] Benefit [facility] Benefit Services [id number] Sunday, 2010 [facility] [id number] N/A [facility] [id number] N/A History of Encounters Visit Date Visit Type Provider 05/15/2015 Office visit Eliel Kline IRON WORKER APPRENTICE 04/15/2015 Office visit Eliel Kline IRON WORKER APPRENTICE 03/18/2015 Office visit Eliel Kline IRON WORKER APPRENTICE 02/12/2015 Office visit Eliel Kline IRON WORKER APPRENTICE 07/01/2014 Office visit Anahi Walker IRON WORKER APPRENTICE 04/26/2014 Office visit Ishan Maloney MD 04/12/2014 Office visit Ishan Maloney MD 02/17/2013 Office visit Eliel Kline IRON WORKER APPRENTICE 05/20/2011 Office visit Manoj Macario MD 05/08/2011 Office visit Manoj Macario MD 04/16/2011 Office visit Ishan Maloney MD 03/31/2011 Office visit Ishan Maloney MD 03/31/2011 Office visit Manoj Macario MD 03/12/2011 Office visit Manoj Macario MD 09/23/2010 Voided Manoj Macario MD 09/16/2010 Office visit Manoj Macario MD 09/03/2010 Nurse visit Manoj Macario MD 08/29/2010 Office visit Manoj Macario MD
--- OUTSIDE RECORDS SUMMARY | 2018-06-23 07:27 | XMS REPORT ---
Author Author Eliel Kline [facility] Address [address] [place], [place] [id number] Care Team Providers Care Cooker Sulfate Name Role Phone Eliel Kline PCP Allergies [...] Reviewed 07/01/2014 12:00 AM Rocephin 1 gram [facility]#[id number] Reviewed Results Summary Data and Description Results [...] of left ear Sep 24 2015 6:44PM Payers Insurance Name Company Name Plan Name Plan Number Policy Number Policy Group Number Start Date [facility] [id number] N/A [facility] Benefit Services [facility] Benefit Services [id number] Sunday, 2010 [facility] [id number] N/A [facility] [id number] N/A History of Encounters Visit Date Visit Type Provider 09/24/2015 Office visit Eliel Kline APRN 07/18/2015 Office visit Eliel Kline UTILITY TECH 06/12/2015 Office visit Eliel Kline UTILITY TECH 05/15/2015 Office visit Eliel Raisa UTILITY TECH 04/15/2015 Office visit Eliel Raisa UTILITY TECH 03/18/2015 Office visit Eliel Kline UTILITY TECH 02/12/2015 Office visit Eliel Kline UTILITY TECH 07/01/2014 Office visit Anahi Walker UTILITY TECH 04/26/2014 Office visit Ishan Maloney MD 04/12/2014 Office visit 04/12/2014 Office visit Ishan Maloney MD 02/17/2013 Office visit Eliel Kline UTILITY TECH 05/20/2011 Office visit Manoj Macario MD 05/08/2011 [...]
--- OUTSIDE RECORDS SUMMARY | 2018-06-23 07:28 | XMS REPORT ---
Author Author Eliel Kline [facility] Address [address] [place], [place] [phone] Care Team Providers Care Macadam Raker Name Role Phone Eliel Kline PCP Eliel [...] mg oral tablet extended release 12 hr 10/06/2016 take 1 tablet by oral route 2 times per day Flonase Allergy Relief 50 mcg/actuation nasal spray,suspension 10/21/2016 spray 1 spray (50 mcg) in each nostril by intranasal route once daily phentermine 37.5 mg oral tablet 11/13/2016 12/13/2016 take 1 tablet (37.5 mg) by oral route once daily before breakfast for 30 days Fill on 11/20/16 Name Start Date Expiration Date SIG Comments [...] oral tablets,dose pack 10/06/2016 take as directed Discontinued Name Start Date Discontinued Date SIG [...] times a day multivitamin oral tablet 10/06/2016 Problem List Description Status Onset Hypertension Active 12/29 Obesity Active PCOS (polycystic ovarian syndrome) Active 03/18/2015 Vital Signs Date Time BP-Sys(mm[Hg] BP-Ester(mm[Hg]) HR(bpm) RR(rpm) Temp WT HT HC BMI BSA BMI Percentile O2 Sat(%) 11/13/2016 8:03:00 AM 120 mmHg 84 mmHg [...] Reviewed 07/01/2014 12:00 AM Rocephin 1 gram [facility]#[id number] Reviewed 02/12/2015 12:00 AM Dietary Consult Reviewed [...] >60 10/06/2016 9:55 AM STREP SCREEN NEGATIVE 10/06/2016 10:10 AM PROGESTERONE 0.20 ng/mL 11/03/2016 7:28 AM PROGESTERONE 0.30 ng/mL History Of Immunizations Not available. History of [...] 8:05AM BMI 36.0-36.9,adult Nov 13 2016 8:05AM Payers Insurance Name Company Name Plan Name Plan Number Policy Number Policy Group Number Start Date [facility] [id number] N/A [facility] Benefit Services [facility] Benefit Services [id number] Sunday, 2010 [facility] [id number] N/A [facility] [id number] N/A History of Encounters Visit Date Visit Type Provider 11/13/2016 Office visit Eliel Kline APRN 10/21/2016 Office visit Charlotte Rossi APRN 10/16/2016 Office visit Eliel Kline APRN 10/06/2016 Office visit Charlotte Rossi MACHINE EGG WASHER 11/12/2015 Surgery Edmund Bouman DO 11/04/2015 Hospital Edmund Bouman DO 11/04/2015 Voided Edmund Bouman DO 11/02/2015 Hospital [facility]01[facility] Office visit Eliel Kline MACHINE EGG WASHER 07/18/2015 Office visit Eliel Kline APRN 06/12/2015 Office visit Eliel Kline APRN 05/15/2015 Office visit Eliel Kline APRN 04/15/2015 Office visit Eliel Kline APRN 03/18/2015 Office visit Eliel Kline APRN 02/12/2015 Office visit Eliel Kline APRN 07/01/2014 Office visit Anahi Walker APRN 04/26/2014 Office visit Ishan Maloney MD 04/12/2014 Office visit 04/12/2014 Office visit Ishan Maloney MD 02/17/2013 Office visit Eliel Kline APRN 05/20/2011 Office visit Manoj Macario MD 05/08/2011 Office visit Manoj Macario MD 04/16/2011 Office visit Ishan Maloney MD 03/31/2011 Office visit 03/31/2011 Office visit Ishan Maolney MD 03/31/2011 Office visit Manoj Macario MD 03/12/2011 Office visit Manoj Macario MD 09/23/2010 Voided Manoj Macario MD 09/16/2010 Office visit Manoj Macario MD 09/03/2010 Nurse visit Manoj Macario MD 08/29/2010 Office visit Manoj Macario MD
--- OUTSIDE RECORDS SUMMARY | 2018-06-23 07:29 | XMS REPORT ---
Author Author Eliel Kline [facility] Address [address] [place] [place] [id number] Care Team Providers Care Hiv Counselor Name Role Phone Eliel Kline PCP Allergies and Adverse Reactions Name Reaction Notes NO KNOWN DRUG ALLERGIES amlodipine Plan of Treatment Planned Activity Comments Planned Date Planned Time Plan/Goal THER/PROPH/DIAG INJ SC/IM 07/01/2014 12:00 AM Medications Active Name Start Date Estimated Completion Date SIG Comments lisinopril 10 mg oral tablet 02/12/2015 03/14/2015 take 1 tablet (10 mg) by oral route once daily for 30 days atenolol 25 mg oral tablet 02/12/2015 03/14/2015 take 1 tablet (25 mg) by oral route once daily for 30 days Name Start Date Expiration [...] QD for 10 days of each month. Discontinued Name Start Date Discontinued Date SIG Comments hydrochlorothiazide 25 mg oral tablet 02/24/2011 05/08/2011 take 1 tablet (25 mg) by oral route once daily for 30 days amlodipine 10 mg oral tablet 04/22/2011 05/08/2011 take 1 tablet (10 mg) by oral route once daily for 30 days Problem List Description Status Onset Hypertension Active 12/29 Obesity Active Vital Signs Date Time BP-Sys(mm[Hg] BP-Ester(mm[Hg]) HR(bpm) RR(rpm) Temp WT HT HC BMI BSA BMI Percentile O2 Sat(%) 02/12/2015 8:14:00 AM 150 mmHg 100 mmHg [...] of Procedures Date Ordered Description Order Status 03/31/2011 12:00 AM ASSAY THYROID STIM HORMONE [...] Reviewed 07/01/2014 12:00 AM Rocephin 1 gram [facility]#[id number] Reviewed Results Summary Data and Description Results [...] FSH 4.50 mIU/mLTSH 2.440 uIU/mLProlactin 7.60 ng/mL History Of Immunizations Not available. History of Past Illness Name Date of Onset Comments Hypertension 12/29 Obesity Abnormal Uterine Bleeding 03/31/2011 Hypertension, Benign Essential Sep 03 2010 10:11AM [...] counseling and surveillance Feb 12 2015 8:17AM Payers Insurance Name Company Name Plan Name Plan Number Policy Number Policy Group Number [id number] [facility] Benefit Services [facility] Benefit Services [id number] Sunday, 2010 [facility] [id number] N/A [facility] [id number] N/A History of Encounters Visit Date Visit Type Provider 02/12/2015 Office visit Eliel Kline WRAPPER STEMMER OPERATOR 07/01/2014 Office visit Anahi Walker WRAPPER STEMMER OPERATOR 04/26/2014 Office visit Ishan Maloney MD 04/12/2014 Office visit Ishan Maloney MD 02/17/2013 Office visit Eliel Kline WRAPPER STEMMER OPERATOR 05/20/2011 Office visit Manoj Macario MD [...]
--- OUTSIDE RECORDS SUMMARY | 2018-06-23 07:29 | XMS REPORT ---
Author Author Charlotte Rossi [facility] Address [address] [place], [place] [phone] Care Team Providers Care Claims Agent Right Of Way Name Role Phone Charlotte Rossi PCP Unavailable Eliel Kline PreferredProvider Allergies and Adverse Reactions [...] oral tablets,dose pack 10/06/2016 take as directed Zyrtec-D 5-120 mg oral tablet extended release [...] HC BMI BSA BMI Percentile O2 Sat(%) 10/06/2016 9:31:00 AM 124 mmHg 68 mmHg 98 bpm 18 rpm 96.9 F 231 lbs 66 in 37.28 kg/m2 2.21 m2 99 % 11/12/2015 10:49:00 AM 143 mmHg 97 mmHg 106 bpm 20 rpm 97 F 294 lbs 66 in 47.4524 kg/m 2.492 m 09/24/2015 6:37:00 PM 122 mmHg 80 mmHg [...] 10/06/2016 12:00 AM STREP A ASSAY W/OPTIC Returned 02/17/2013 12:00 AM URINE TEST Reviewed 04/20/2014 [...] 07/01/2014 12:00 AM Rocephin 1 gram [facility]#[id number] Reviewed 02/12/2015 12:00 AM Dietary Consult Reviewed Results Summary Data and Description Results [...] 4:27PM Sore throat Oct 06 2016 9:33AM Payers Insurance Name Company Name Plan Name Plan Number Policy Number Policy Group Number Start Date [facility] [id number] N/A [facility] Benefit Services [facility] Benefit Services [id number] Sunday, 2010 [facility] [id number] N/A [facility] [id number] N/A History of Encounters Visit Date Visit Type Provider 10/06/2016 Office visit Charlotte Rossi ROOF DESIGNER 11/12/2015 Surgery Edmund Cruz DO 11/04/2015 Hospital Edmund Cruz DO 11/04/2015 Voided Edmund Cruz DO 11/02/2015 Hospital Edmund Cruz DO 11/01/2015 Hospital Edmund Cruz DO 09/24/2015 Office visit Eliel Kline APRN 07/18/2015 Office visit Eliel Kline ROOF DESIGNER 06/12/2015 Office visit Eliel Kline APRN 05/15/2015 Office visit Eliel Kline APRN 04/15/2015 Office visit Eliel Kline APRN 03/18/2015 Office visit Eliel Kline APRN 02/12/2015 Office visit Eliel Rushran ROOF DESIGNER 07/01/2014 Office visit Anahi Walker ROOF DESIGNER 04/26/2014 Office visit Ishan Maloney MD 04/12/2014 Office visit 04/12/2014 Office visit Ishan Maloney MD 02/17/2013 Office visit Eliel Kline ROOF DESIGNER 05/20/2011 Office visit Manoj Macario MD 05/08/2011 Office visit Manoj Macairo MD 04/16/2011 Office visit Ishan Maloney MD 03/31/2011 Office visit 03/31/2011 Office visit Ishan Maloney MD 03/31/2011 Office visit Manoj Macario MD 03/12/2011 Office visit Manoj Macario MD 09/23/2010 Voided Manoj Macario MD 09/16/2010 Office visit Manoj Macario MD 09/03/2010 Nurse visit Manoj Macario MD 08/29/2010 Office visit Manoj Macario MD
--- OUTSIDE RECORDS SUMMARY | 2018-06-23 07:30 | XMS REPORT ---
Author Author Eliel Kline [facility] Address [address] [place], [place] [phone] Care Team Providers Care Home Economics Extension Worker Name Role Phone Eliel Kline PCP Allergies [...] oral route once daily for 30 days Ortho Tri-Cyclen (28) 0.18/0.215/0.25 mg-35 mcg (28) oral tablet 06/12/2015 take 1 tablet by oral route once daily Name Start Date Expiration Date SIG Comments [...] route every 12 hours for 7 days Discontinued Name Start Date Discontinued Date [...] HC BMI BSA BMI Percentile O2 Sat(%) 07/18/2015 3:03:00 PM 140 mmHg 80 mmHg [...] Reviewed 07/01/2014 12:00 AM Rocephin 1 gram [facility]#[id number] Reviewed Results Summary Data and Description Results [...] 13.40 g/dLHCT 40.80 %MCV 85.0 fLMCH 27.70 [facility] 32.80 g/dLRDW CV 13.60 %MPV 9.30 fLPLT [...] counseling and surveillance Jul 18 2015 3:05PM Payers Insurance Name Company Name Plan Name Plan Number Policy Number Policy Group Number Start Date [facility] [id number] N/A [facility] Benefit Services [facility] Benefit Services [id number] Sunday, 2010 [facility] [id number] N/A [facility] [id number] N/A History of Encounters Visit Date Visit Type Provider 07/18/2015 Office visit Eliel Kline APRN 06/12/2015 [...]
--- OUTSIDE RECORDS SUMMARY | 2018-06-23 07:31 | XMS REPORT ---
Author Author Eliel Kline [facility] Address [address] [place], [place] [phone] Care Team Providers Care Cut Tobacco Bulker Name Role Phone Eliel Kline PCP Eliel Kline PreferredProvider Allergies and Adverse Reactions Name Reaction Notes amlodipine Plan of Treatment Planned Activity Comments Planned Date Planned Time Plan/Goal IM Injection 07/01/2014 12:00 AM Medications Active Name Start Date Estimated Completion Date SIG Comments metformin 500 mg oral tablet 07/29/2015 TAKE ONE TABLET BY MOUTH TWICE DAILY WITH MORNING AND EVENING MEALS Flonase Allergy Relief 50 mcg/actuation nasal spray,suspension 10/21/2016 spray 1 spray (50 mcg) in each nostril by intranasal route once daily gabapentin 300 mg oral capsule 08/24/2017 take 1 capsule by oral route once a day (at bedtime) Zyrtec-D 5-120 mg oral tablet extended release [...] breakfast for 30 days Fill on 11/20/16 Discontinued Name Start Date Discontinued Date SIG [...] HC BMI BSA BMI Percentile O2 Sat(%) 08/24/2017 1:01:00 PM 140 mmHg 70 mmHg 89 bpm 18 rpm 96.7 F 243 lbs 66 in 39.22 kg/m2 2.27 m2 96 % 11/13/2016 8:03:00 AM 120 mmHg 84 mmHg 81 bpm 16 rpm 96.4 F 228.375 lbs 66 in 36.8603 kg/m 2.1963 m 94 % 10/21/2016 10:32:00 AM 116 mmHg 70 mmHg 82 bpm 18 rpm 97.9 F 232.25 lbs 66 in 37.49 kg/m2 2.21 m2 99 % 10/16/2016 8:18:00 AM 120 mmHg 70 mmHg 78 bpm 16 rpm 97.2 F 234 lbs 66 in 37.7682 kg/m 2.2232 m 98 % 10/06/2016 9:31:00 AM 124 mmHg [...] Reviewed 07/01/2014 12:00 AM Rocephin 1 gram [facility]#[id number] Reviewed 02/12/2015 12:00 AM Dietary Consult Reviewed [...] down right leg Aug 24 2017 1:04PM Payers Insurance Name Company Name Plan Name Plan Number Policy Number Policy Group Number [id number] N/A [facility] Benefit Services [facility] Benefit Services [id number] Sunday, 2010 [facility] [id number] N/A [facility] [id number] N/A History of Encounters Visit Date Visit Type Provider 08/24/2017 Office visit Eliel Kline APRN 11/13/2016 Office visit Eliel Kline APRN 10/21/2016 Office visit Charlotte Rossi APRN 10/16/2016 Office visit Eliel Kline APRN 10/06/2016 Office visit Charlotte Rossi APRN 11/12/2015 Surgery Edmund Bouman DO 11/04/2015 Hospital Edmund Bouman DO 11/04/2015 Voided Edmund Bouman DO 11/02/2015 Hospital Edmund Bouman DO 11/01/2015 Hospital Edmund Bouman DO 09/24/2015 Office visit Eliel Kline APRN 07/18/2015 Office visit Eliel Kline APRN 06/12/2015 [...]
--- OUTSIDE RECORDS SUMMARY | 2018-06-23 07:31 | XMS REPORT ---
Author Author Charlotte Rossi [facility] Address [address] [place], [place] [id number] Care Team Providers Care Chancery Clerk Name Role Phone Charlotte Rossi PCP Unavailable Eliel Kline PreferredProvider Allergies and Adverse Reactions Name Reaction Notes amlodipine Plan of Treatment Planned Activity Comments Planned Date Planned Time Plan/Goal Rapid Strep 10/06/2016 12:00 AM IM Injection 07/01/2014 12:00 AM Medications Active Name Start Date Estimated Completion Date SIG Comments metformin 500 mg oral tablet 07/29/2015 TAKE ONE TABLET BY MOUTH TWICE DAILY WITH MORNING AND EVENING MEALS Name Start Date Expiration Date SIG Comments [...] Reviewed 11/04/2015 12:00 AM EXTREMITY STUDY Reviewed 02/17/2013 12:00 AM URINE TEST Reviewed [...] AM Rocephin 1 gram [facility]#[id number] Reviewed 02/12/2015 12:00 AM Dietary Consult Reviewed [...] AA 103 eGFR >60 mL/min/1.73meGFR AA* >60 History Of Immunizations Not available. History of [...] Policy Number Policy Group Number Start Date [facility] [id number] N/A [facility] Benefit Services [facility] Benefit Services [id number] Sunday, 2010 [facility] [id number] N/A [facility] [id number] N/A History of Encounters Visit Date Visit Type Provider 10/06/2016 Office visit Charlotte Rossi BRICK OFF BEARER 11/12/2015 Surgery [facility] DO 11/04/2015 Hospital [facility] DO 11/04/2015 Voided [facility] DO 11/02/2015 Hospital [facility] DO 11/01/2015 [facility] DO 09/24/2015 Office visit Eliel Kline BRICK OFF BEARER 07/18/2015 Office visit Eliel Kline BRICK OFF BEARER 06/12/2015 Office visit Eliel Kline APRN 05/15/2015 [...]
--- OUTSIDE RECORDS SUMMARY | 2018-06-23 07:32 | XMS REPORT ---
Author Edmund Patrick [facility] Address [address] [place], [place] [phone] Care Team Providers Care Energy Systems Engineer Name Role Phone Edmund Cruz PCP Unavailable Allergies and Adverse Reactions Name Reaction Notes [...] 2 times a day multivitamin oral tablet Name Start Date Expiration Date SIG Comments [...] HC BMI BSA BMI Percentile O2 Sat(%) 11/12/2015 10:49:00 AM 143 mmHg 97 mmHg [...] Reviewed 07/01/2014 12:00 AM Rocephin 1 gram [facility]#[id number] Reviewed Results Summary Data and Description Results [...] 13.40 g/dLHCT 40.80 %MCV 85.0 fLMCH 27.70 pgHC 32.80 g/dLRDW CV 13.60 %MPV 9.30 fLPLT [...] Policy Number Policy Group Number Start Date [facility] [id number] N/A [facility] Benefit Services [facility] Benefit Services [id number] Sunday, 2010 [facility] [id number] N/A [facility] [id number] N/A History of Encounters Visit Date Visit Type Provider 11/12/2015 Surgery Edmund Curz DO 11/04/2015 Voided Edmund Cruz DO 11/02/2015 Hospital Edmund Cruz DO 09/24/2015 Office visit Eliel Raisa ASSEMBLER CARBON BRUSHES 07/18/2015 Office visit Eliel Kline ASSEMBLER CARBON BRUSHES 06/12/2015 Office visit Eliel Rushran ASSEMBLER CARBON BRUSHES 05/15/2015 Office visit Eliel Kline ASSEMBLER CARBON BRUSHES 04/15/2015 Office visit Eliel Kline ASSEMBLER CARBON BRUSHES 03/18/2015 Office visit Eliel Kline ASSEMBLER CARBON BRUSHES 02/12/2015 Office visit Eliel Kline ASSEMBLER CARBON BRUSHES 07/01/2014 Office visit Anahi Walker ASSEMBLER CARBON BRUSHES 04/26/2014 Office visit Ishan Maloney MD 04/12/2014 Office visit 04/12/2014 Office visit Ishan Maloney MD 02/17/2013 Office visit Eliel Kline ASSEMBLER CARBON BRUSHES 05/20/2011 Office visit Manoj Macario MD 05/08/2011 [...]
--- OUTSIDE RECORDS SUMMARY | 2018-06-23 07:32 | XMS REPORT ---
Author Author Charlotte Rossi [facility] Address [address] [place], [place] [phone] Care Team Providers Care Lead Infrastructure Architect Name Role Phone Charlotte Rossi PCP Unavailable [...] by oral route 2 times per day phentermine 37.5 mg oral tablet 10/16/2016 11/15/2016 take 1 tablet (37.5 mg) by oral route once daily before breakfast for 30 days Flonase Allergy Relief 50 mcg/actuation nasal spray,suspension 10/21/2016 spray 1 spray (50 mcg) in each nostril by intranasal route once daily Name Start Date Expiration [...] HC BMI BSA BMI Percentile O2 Sat(%) 10/21/2016 10:32:00 AM 116 mmHg 70 mmHg [...] Reviewed 07/01/2014 12:00 AM Rocephin 1 gram [facility]#[id number] Reviewed 02/12/2015 12:00 AM Dietary Consult Reviewed [...] NEGATIVE 10/06/2016 10:10 AM PROGESTERONE 0.20 ng/mL History Of Immunizations Not available. History [...] BMI 37.0-37.9, adult Oct 16 2016 8:19AM Payers Insurance Name Company Name Plan Name Plan Number Policy Number Policy Group Number Start Date [employer] [facility] [place] [id number] N/A [facility] Benefit Services [facility] Benefit Services [id number] Sunday, 2010 [facility] [id number] N/A [facility] [id number] N/A History of Encounters Visit Date Visit Type Provider 10/21/2016 Office visit Charlotte Rossi SENIOR SOFTWARE ARCHITECT 10/16/2016 Office visit Eliel Kline SENIOR SOFTWARE ARCHITECT 10/06/2016 Office visit Charlotte Rossi SENIOR SOFTWARE ARCHITECT 11/12/2015 Surgery Edmund Bouman DO 11/04/2015 Hospital Edmund Bouman DO 11/04/2015 Voided Edmund Bouman DO 11/02/2015 Hospital Edmund Bouman DO 11/01/2015 Hospital Edmund Bouman DO 09/24/2015 Office visit Eliel Kline SENIOR SOFTWARE ARCHITECT 07/18/2015 Office visit Eliel Kline SENIOR SOFTWARE ARCHITECT 06/12/2015 Office visit Eliel Kline SENIOR SOFTWARE ARCHITECT 05/15/2015 Office visit Eliel Kline SENIOR SOFTWARE ARCHITECT 04/15/2015 Office visit Eliel Kline SENIOR SOFTWARE ARCHITECT 03/18/2015 Office visit Eliel Kline SENIOR SOFTWARE ARCHITECT 02/12/2015 Office visit Eliel Kline SENIOR SOFTWARE ARCHITECT 07/01/2014 Office visit Anahi Walker SENIOR SOFTWARE ARCHITECT 04/26/2014 Office visit Ishan Maloney MD 04/12/2014 Office visit 04/12/2014 Office visit Ishan Maloney MD 02/17/2013 Office visit Eliel Kline SENIOR SOFTWARE ARCHITECT 05/20/2011 Office visit Manoj Macario MD 05/08/2011 [...]
--- OUTSIDE RECORDS SUMMARY | 2018-06-23 07:33 | XMS REPORT ---
Author Author Eliel Kline [facility] Address [address] [place], [place] [phone] Care Team Providers Care Pin Chaser Name Role Phone Eliel Kline PCP Eliel [...] Reviewed 07/01/2014 12:00 AM Rocephin 1 gram [facility]#[id number] Reviewed 02/12/2015 12:00 AM Dietary Consult Reviewed [...] Number Policy Group Number Start Date [facility] [id number] N/A [facility] Benefit Services [facility] Benefit Services [id number] Sunday, 2010 [facility] [id number] N/A [facility] [id number] N/A History of Encounters Visit Date Visit Type Provider 11/13/2016 Office visit Eliel Kline APRN 10/21/2016 Office visit Charlotte Rossi APRN 10/16/2016 Office visit Eliel Kline APRN 10/06/2016 Office visit Charlotte Rossi TRAUMA PROGRAM MANAGER 11/12/2015 Surgery Edmund Bouman DO 11/04/2015 Hospital Edmund Bouman DO 11/04/2015 Voided Edmund Bouman DO 11/02/2015 Hospital Edmund Bouman DO [facility]/01[facility] Office visit Eliel Kline TRAUMA PROGRAM MANAGER 07/18/2015 Office visit lEiel Kline APRN 06/12/2015 Office visit Eliel Kline [...]
--- OUTSIDE RECORDS SUMMARY | 2018-06-23 07:34 | XMS REPORT ---
Author Author Charlotte Rossi [facility] Address [address] [place], [place] [phone] Care Team Providers Care Pig Sticker Name Role Phone Charlotte Rossi PCP Unavailable [...] 07/01/2014 12:00 AM Rocephin 1 gram [facility]#[id number] Reviewed 02/12/2015 12:00 AM Dietary Consult Reviewed [...] other allergic trigger Oct 21 2016 10:34AM Payers Insurance Name Company Name Plan Name Plan Number Policy Number Policy Group Number Start Date [facility] [id number] N/A [facility] Benefit Services [facility] Benefit Services [id number] Sunday, 2010 [facility] [id number] N/A [facility] [id number] N/A History of Encounters Visit Date Visit Type Provider 10/21/2016 Office visit Charlotte Rossi COMMUNITY RELATIONS REP 10/16/2016 Office visit Eliel Kline COMMUNITY RELATIONS REP 10/06/2016 Office visit Charlotte Rossi COMMUNITY RELATIONS REP 11/12/2015 Surgery Edmund Bouman DO 11/04/2015 Hospital Edmund Bouman DO 11/04/2015 Voided Edmund Bouman DO 11/02/2015 Hospital Edmund Bouman DO 11/01/2015 Hospital Edmund Bouman DO 09/24/2015 Office visit Eliel Kline COMMUNITY RELATIONS REP 07/18/2015 Office visit Eliel Kline COMMUNITY RELATIONS REP 06/12/2015 Office visit Eliel Kline COMMUNITY RELATIONS REP 05/15/2015 Office visit Eliel Kline COMMUNITY RELATIONS REP 04/15/2015 Office visit Eliel Kline COMMUNITY RELATIONS REP 03/18/2015 Office visit Eliel Kline COMMUNITY RELATIONS REP 02/12/2015 Office visit Eliel Kline COMMUNITY RELATIONS REP 07/01/2014 Office visit Anahi Walker COMMUNITY RELATIONS REP 04/26/2014 Office visit Ishan Maloney MD 04/12/2014 Office visit 04/12/2014 Office visit Ishan Maloney MD 02/17/2013 Office visit Eliel Kline COMMUNITY RELATIONS REP 05/20/2011 Office visit Manoj Macario MD 05/08/2011 [...]
--- OUTSIDE RECORDS SUMMARY | 2018-06-23 07:34 | XMS REPORT ---
Author Author Eliel Kline [facility] Address [address] [place] [phone] Care Team Providers Care Federal Aid Coordinator Name Role Phone Eliel Kline PCP Allergies [...] oral route once daily for 30 days Augmentin 875-125 mg oral [...] morning and evening meals for 30 days Discontinued Name Start Date [...] HC BMI BSA BMI Percentile O2 Sat(%) 06/12/2015 1:12:00 PM 130 mmHg 80 mmHg [...] AM Rocephin 1 gram [facility]#[id number] Reviewed Results Summary Data and Description Results [...] recurrence not specified Jun 12 2015 1:14PM Payers Insurance Name Company Name Plan Name Plan Number Policy Number Policy Group Number Start Date [facility] [id number] N/A [facility] Benefit Services [facility] Benefit Services [id number] Sunday, 2010 [facility] [id number] N/A [facility] [id number] N/A History of Encounters Visit Date Visit Type Provider 06/12/2015 Office visit Eliel Kline IMPLEMENTATION COORDINATOR 05/15/2015 Office visit Eliel Kline IMPLEMENTATION COORDINATOR 04/15/2015 Office visit Eliel Kline APRN 03/18/2015 Office visit Eliel Kline APRN 02/12/2015 Office visit Eliel Kline APRN 07/01/2014 Office visit Anahi Walker IMPLEMENTATION COORDINATOR 04/26/2014 Office visit Ishan Maloney MD 04/12/2014 Office visit Ishan Maloney MD 02/17/2013 Office visit Eliel Kline IMPLEMENTATION COORDINATOR 05/20/2011 Office visit Manoj Macario MD 05/08/2011 [...]
--- OUTSIDE RECORDS SUMMARY | 2018-06-23 07:35 | XMS REPORT ---
Author Author Cam Bermudez Organization [facility] Address [address] [place] [phone] Care Team Providers Care Utility Operator Yarn Name Role Phone Cam Bermudez PCP Eliel Kline PreferredProvider Allergies and Adverse Reactions Name Reaction Notes amlodipine Plan of Treatment Planned Activity Comments Planned Date Planned Time Plan/Goal IM Injection 07/01/2014 12:00 AM Medications Active Name Start Date Estimated Completion Date SIG Comments metformin 500 mg oral tablet 07/29/2015 TAKE ONE TABLET BY MOUTH TWICE DAILY WITH MORNING AND EVENING MEALS gabapentin 300 mg oral capsule 08/24/2017 take 1 capsule by oral route once a day (at bedtime) Zyrtec-D 5-120 mg oral tablet extended release 12 hr 08/24/2017 take 1 tablet by oral route 2 times per day cyclobenzaprine 5 mg oral tablet 08/31/2017 take 1 tablet (5 mg) by oral route 3 times per day for 7 days Name Start Date Expiration Date SIG [...] each nostril by intranasal route once daily Problem List Description Status Onset Hypertension Active 12/29 Obesity Active PCOS (polycystic ovarian syndrome) Active 03/18/2015 Allergic rhinitis Active 08/30/2017 Vital Signs Date Time BP-Sys(mm[Hg] BP-Ester(mm[Hg]) HR(bpm) RR(rpm) Temp WT HT HC BMI BSA BMI Percentile O2 Sat(%) 08/31/2017 8:04:00 AM 130 mmHg 70 mmHg [...] Reviewed 07/01/2014 12:00 AM Rocephin [address] [facility]#[id number] Reviewed 02/12/2015 12:00 AM Dietary Consult Reviewed [...] Pelvic girdle weakness Aug 31 2017 8:10AM Payers Insurance Name Company Name Plan Name Plan Number Policy Number Policy Group Number Start Date [facility] [id number] N/A [facility] Benefit Services [facility] Benefit Services [id number] Sunday, 2010 [facility] [id number] N/A [facility] [id number] N/A History of Encounters Visit Date Visit Type Provider 08/31/2017 Office visit Cam Bermudez DO 08/24/2017 Office visit Eliel Kline APRN 11/13/2016 Office visit Eliel Kline APRN 10/21/2016 Office visit Charlotte Rossi APRN 10/16/2016 Office visit Eliel Kline APRN 10/06/2016 Office visit Charlotte Rossi APRN 11/12/2015 Surgery Edmund Cruz DO 11/04/2015 Hospital Edmund Cruz DO 11/04/2015 Voided Edmund Cruz DO 11/02/2015 Hospital Edmund Cruz DO 11/01/2015 Hospital Edmund Cruz DO 09/24/2015 Office visit Eliel Raisa SALES MARKETING 07/18/2015 Office visit Eliel Kline SALES MARKETING 06/12/2015 Office visit Eliel Raisa SALES MARKETING 05/15/2015 Office visit Eliel Kline SALES MARKETING 04/15/2015 Office visit Eliel Kline SALES MARKETING 03/18/2015 Office visit Eliel Kline SALES MARKETING 02/12/2015 Office visit Eliel Kline SALES MARKETING 07/01/2014 Office visit Anahi Walker SALES MARKETING 04/26/2014 Office visit Ishan Maloney MD 04/12/2014 Office visit 04/12/2014 Office visit Ishan Maloney MD 02/17/2013 Office visit Eliel Kline SALES MARKETING 05/20/2011 Office visit Manoj Macario MD 05/08/2011 [...]
--- OUTSIDE RECORDS SUMMARY | 2018-06-23 07:36 | XMS REPORT ---
Author Author Eliel Kline [facility] Address [address] [place], [place] [address] Care Team Providers Care Box Printer Name Role Phone Eliel Kline PCP Allergies [...] 07/01/2014 12:00 AM Rocephin 1 gram [facility]#[id number] Reviewed Results Summary Data and Description Results [...] Policy Number Policy Group Number Start Date [facility] [id number] N/A [facility] Benefit Services [facility] Benefit Services [id number] Sunday, 2010 [facility] [id number] N/A [facility] [id number] N/A History of Encounters Visit Date Visit Type Provider 09/24/2015 Office visit Eliel Kline TOMATO GRADER 07/18/2015 Office visit Eliel Kline TOMATO GRADER 06/12/2015 Office visit Eliel Kline TOMATO GRADER 05/15/2015 Office visit Eliel Kline TOMATO GRADER 04/15/2015 Office visit Eliel Kline TOMATO GRADER 03/18/2015 Office visit Eliel Kline TOMATO GRADER 02/12/2015 Office visit Eliel Kline TOMATO GRADER 07/01/2014 Office visit Anahi Walker TOMATO GRADER 04/26/2014 Office visit Ishan Maloney MD 04/12/2014 Office visit 04/12/2014 Office visit Ishan Maloney MD 02/17/2013 Office visit Eliel Kline TOMATO GRADER 05/20/2011 Office visit Manoj Macario MD 05/08/2011 [...]
--- OUTSIDE RECORDS SUMMARY | 2018-06-23 07:36 | XMS REPORT ---
Author Author Eliel Kline [facility] Address [address] [place] [address] Care Team Providers Care Polisher Aluminum Name Role Phone Eliel Kline PCP Allergies and Adverse Reactions Name Reaction Notes amlodipine Plan of Treatment Planned Activity Comments Planned Date Planned Time Plan/Goal THER/PROPH/DIAG INJ SC/IM 07/01/2014 12:00 AM Medications Active Name Start Date Estimated Completion Date SIG Comments metformin 500 mg oral tablet 03/27/2015 04/26/2015 take 1 tablet (500 mg) by oral route 2 times per day with morning and evening meals for 30 days lisinopril 10 mg oral tablet 04/15/2015 take 1 tablet (10 mg) by oral route once daily for 30 days atenolol 25 mg oral tablet 04/15/2015 take 1 tablet (25 mg) by oral [...] HC BMI BSA BMI Percentile O2 Sat(%) 04/15/2015 8:07:00 AM 140 mmHg 90 mmHg [...] Reviewed 07/01/2014 12:00 AM Rocephin 1 gram [facility]#[id number] Reviewed Results Summary Data and Description Results [...] counseling and surveillance Apr 15 2015 8:09AM Payers Insurance Name Company Name Plan Name Plan Number Policy Number Policy Group Number Start Date [facility] [id number] N/A [facility] Benefit Services [facility] Benefit Services [id number] Sunday, 2010 [facility] [id number] N/A [facility] [id number] N/A History of Encounters Visit Date Visit Type Provider 04/15/2015 Office visit Eliel Kline APRN 03/18/2015 [...]
--- OUTSIDE RECORDS SUMMARY | 2018-06-23 07:37 | XMS REPORT ---
Author Author Eliel Kline [facility] Address [address] [place], [place] [address] Care Team Providers Care Sanitation Associate Name Role Phone Eliel Kline PCP Allergies and Adverse Reactions Name Reaction Notes amlodipine Plan of Treatment Planned Activity Comments Planned Date Planned Time Plan/Goal THER/PROPH/DIAG INJ SC/IM 07/01/2014 12:00 AM Medications Name Start Date Expiration Date SIG Comments [...] HC BMI BSA BMI Percentile O2 Sat(%) 03/18/2015 9:18:00 AM 140 mmHg 88 mmHg [...] Reviewed 07/01/2014 12:00 AM Rocephin 1 gram [facility]#[id number] Reviewed Results Summary Data and Description Results [...] counseling and surveillance Mar 18 2015 9:20AM Payers Insurance Name Company Name Plan Name Plan Number Policy Number Policy Group Number Start Date [facility] [id number] N/A [facility] Benefit Services [facility] Benefit Services [id number] Sunday, 2010 [facility] [id number] N/A [facility] [id number] N/A History of Encounters Visit Date Visit Type Provider 03/18/2015 Office visit Eliel Kline TELEX OPERATOR 02/12/2015 Office visit Eliel Kline TELEX OPERATOR 07/01/2014 Office visit Anahi Walker TELEX OPERATOR 04/26/2014 Office visit Ishan Maloney MD 04/12/2014 Office visit Ishan Maloney MD 02/17/2013 Office visit Eliel Kline TELEX OPERATOR 05/20/2011 Office visit Manoj Macario MD [...]
--- OUTSIDE RECORDS SUMMARY | 2018-06-23 07:37 | XMS REPORT ---
Author Author Charlotte Rossi [facility] Address [address] [place], [place] [address] Care Team Providers Care Odd Bundle Worker Name Role Phone Charlotte Rossi PCP Unavailable [...] Reviewed 07/01/2014 12:00 AM Rocephin 1 gram [facility]#[id number] Reviewed 02/12/2015 12:00 AM Dietary Consult Reviewed [...] Policy Number Policy Group Number Start Date [facility] [id number] N/A [facility] Benefit Services [facility] Benefit Services [id number] Sunday, 2010 [facility] [id number] N/A [facility] [id number] N/A History of Encounters Visit Date Visit Type Provider 10/06/2016 Office visit Charlotte Rossi TRAINS SERVICE CONDUCTOR 11/12/2015 Surgery Edmund Cruz DO 11/04/2015 Hospital Edmund Cruz DO 11/04/2015 Voided Edmund Cruz DO 11/02/2015 Hospital Edmund Cruz DO 11/01/2015 Hospital Edmund Cruz DO 09/24/2015 Office visit Eliel Kline APRN 07/18/2015 Office visit Eliel Kline TRAINS SERVICE CONDUCTOR 06/12/2015 Office visit Eliel Kline APRN 05/15/2015 Office visit Eliel Kline APRN 04/15/2015 Office visit Eliel Kline APRN 03/18/2015 Office visit Eliel Kline APRN 02/12/2015 Office visit Eliel Rushran TRAINS SERVICE CONDUCTOR 07/01/2014 Office visit Anahi Walker TRAINS SERVICE CONDUCTOR 04/26/2014 Office visit Ishan Maloney MD 04/12/2014 Office visit 04/12/2014 Office visit Ishan Maloney MD 02/17/2013 Office visit Eliel Kline TRAINS SERVICE CONDUCTOR 05/20/2011 Office visit Manoj Macario MD 05/08/2011 [...]
--- OUTSIDE RECORDS SUMMARY | 2018-06-23 07:38 | XMS REPORT | Continuity of Care Document ---
Author Author [facility] Address Unknown Phone Unavailable Allergies Active Description Code Type Severity Reaction Onset Reported/Identified Relationship to Patient Clinical Status Yes No Known Drug Allergies [id number] N/A N/A Yes No Known Drug Allergies [id number] Drug Allergy Unknown N/A 03/08/2018 Medications There is no data. Problems Date Dx Coded Attending Type Code Diagnosis Diagnosed By 05/12/2017 P E288 Other ovarian dysfunction 05/12/2017 P E288 Other ovarian dysfunction 05/12/2017 P E288 Other ovarian dysfunction 05/12/2017 P E288 Other ovarian dysfunction 09/29/2017 S G8929 Other chronic pain 09/29/2017 P M545 Low back pain 09/29/2017 S M546 Pain in thoracic spine 09/29/2017 S M7061 Trochanteric bursitis, right hip 09/29/2017 S M797 Fibromyalgia 03/08/2018 RASHMI SMALLS MD Ot N23 UNSPECIFIED RENAL COLIC 03/08/2018 RASHMI SMALLS MD Ot O99.89 OTH DISEASES AND CONDITIONS COMPL PREG/C 03/08/2018 RASHMI SMALLS MD Ot Z3A.24 24 WEEKS GESTATION OF 03/10/2018 RASHMI SMALLS MD, Ot N23 UNSPECIFIED RENAL COLIC 03/10/2018 RASHMI SMALLS MD Ot O99.89 OTH DISEASES AND CONDITIONS COMPL PREG/C 03/10/2018 RASHMI SMALLS MD Ot Z3A.24 24 WEEKS GESTATION OF 03/10/2018 RASHMI SMALLS MD, Ot N23 UNSPECIFIED RENAL COLIC 03/10/2018 RASHMI SMALLS MD Ot O99.89 OTH DISEASES AND CONDITIONS COMPL PREG/C 03/10/2018 RASHMI SMALLS MD Ot Z3A.24 24 WEEKS GESTATION OF 06/21/2018 RASHMI SMALLS MD Ot O14.03 MILD TO MODERATE PRE-ECLAMPSIA, THIRD TR 06/21/2018 SLIM KAUR, RASHMI Franks Ot O14.03 MILD TO MODERATE PRE-ECLAMPSIA, THIRD TR Procedures There is no data. Results Test Result Range Antinuclear Antibodies, IFA - 05/04/18 13:54 Antinuclear Antibodies, IFA Positive GABBIE Staining Patterns - 05/04/18 13:54 Note: Comment Homogeneous Pattern 1:160 Estradiol - 05/04/17 10:20 Estradiol 80.6 pg/mL Estradiol - 05/12/17 07:25 Estradiol 61.4 pg/mL FSH, Serum - 05/12/17 07:25 FSH 8.7 mIU/mL Complete blood count (CBC) with automated white blood cell (WBC) differential - 03/08/18 11:17 Blood leukocytes automated count (number/volume) 11.5 10*3/uL 4.3-11.0 Blood erythrocytes automated count (number/volume) 3.69 10*6/uL 4.35-5.85 Venous blood hemoglobin measurement (mass/volume) 11.0 g/dL 11.5-16.0 Blood hematocrit (volume fraction) 31 % 35-52 Automated erythrocyte mean corpuscular volume 84 [foz_us] 80-99 Automated erythrocyte mean corpuscular hemoglobin (mass per erythrocyte) 30 pg 25-34 Automated erythrocyte mean corpuscular hemoglobin concentration measurement ( mass/volume) 36 g/dL 32-36 Automated erythrocyte distribution width ratio 13.5 % 10.0-14.5 Automated blood platelet count (count/volume) 316 10*3/uL 130-400 Automated blood platelet mean volume measurement 10.0 [foz_us] 7.4-10.4 Automated blood neutrophils/100 leukocytes 70 % 42-75 Automated blood lymphocytes/100 leukocytes 22 % 12-44 Blood monocytes/100 leukocytes 7 % 0-12 Automated blood eosinophils/100 leukocytes 1 % 0-10 Automated blood basophils/100 leukocytes 0 % 0-10 Blood neutrophils automated count (number/volume) 8.1 10*3 1.8-7.8 Blood lymphocytes automated count (number/volume) 2.6 10*3 1.0-4.0 Blood monocytes automated count (number/volume) 0.8 10*3 0.0-1.0 Automated eosinophil count 0.1 10*3/uL 0.0-0.3 Automated blood basophil count (count/volume) 0.0 10*3/uL 0.0-0.1 Comprehensive metabolic panel - 03/08/18 11:17 Serum or plasma sodium measurement (moles/volume) 139 mmol/L 135-145 Serum or plasma potassium measurement (moles/volume) 4.0 mmol/L 3.6-5.0 Serum or plasma chloride measurement (moles/volume) 107 mmol/L 98-107 Carbon dioxide 24 mmol/L 21-32 Serum or plasma anion gap determination (moles/volume) 8 mmol/L 5-14 Serum or plasma urea nitrogen measurement (mass/volume) 10 mg/dL 7-18 Serum or plasma creatinine measurement (mass/volume) 0.60 mg/dL 0.60-1.30 Serum or plasma urea nitrogen/creatinine mass ratio 17 NRG Serum or plasma creatinine measurement with calculation of estimated glomerular filtration rate > NRG Serum or plasma glucose measurement (mass/volume) 75 mg/dL 70-105 Serum or plasma calcium measurement (mass/volume) 9.2 mg/dL 8.5-10.1 Serum or plasma total bilirubin measurement (mass/volume) 0.2 mg/dL 0.1-1.0 Serum or plasma alkaline phosphatase measurement (enzymatic activity/volume) 69 U/L 40-136 Serum or plasma aspartate aminotransferase measurement (enzymatic activity/ volume) 11 U/L 5-34 Serum or plasma alanine aminotransferase measurement (enzymatic activity/volume ) 11 U/L 0-55 Serum or plasma protein measurement (mass/volume) 6.5 g/dL 6.4-8.2 Serum or plasma albumin measurement (mass/volume) 3.5 g/dL 3.2-4.5 CALCIUM CORRECTED 9.6 mg/dL 8.5-10.1 Complete urinalysis with reflex to culture - 03/08/18 11:25 Urine color determination YELLOW NRG Urine clarity determination CLEAR NRG Urine pH measurement by test strip 5 5-9 Specific gravity of urine by test strip 1.030 1.016- 1.022 Urine protein assay by test strip, semi-quantitative 1+ NEGATIVE Urine glucose detection by automated test strip NEGATIVE NEGATIVE Erythrocytes detection in urine sediment by light microscopy 3+ NEGATIVE Urine ketones detection by automated test strip NEGATIVE NEGATIVE Urine nitrite detection by test strip NEGATIVE NEGATIVE Urine total bilirubin detection by test strip NEGATIVE NEGATIVE Urine urobilinogen measurement by automated test strip (mass/volume) 1 mg/dL NORMAL Urine leukocyte esterase detection by dipstick NEGATIVE NEGATIVE Automated urine sediment erythrocyte count by microscopy (number/high power field) [HPF] NRG Automated urine sediment leukocyte count by microscopy (number/high power field ) NONE NRG Bacteria detection in urine sediment by light microscopy NEGATIVE NRG Squamous epithelial cells detection in urine sediment by light microscopy 5-10 NRG Crystals detection in urine sediment by light microscopy NONE NRG Casts detection in urine sediment by light microscopy NONE NRG Mucus detection in urine sediment by light microscopy MODERATE NRG Complete urinalysis with reflex to culture NO NRG Bacterial urine culture - 03/08/18 11:25 Bacterial urine culture NG NRG Urine protein/creatinine mass ratio - 06/16/18 10:08 Urine protein measurement (mass/volume) 43 mg/dL 6-12 Urine creatinine measurement (mass/volume) 218 mg/dL 30- 125 Urine protein/creatinine mass ratio 0.20 NRG Encounters ACCT No. Visit Date/Time Discharge Status Pt. Type Provider Facility Loc./Unit Complaint [id number] 05/25/2018 10:31:35 05/25/2018 23:59:59 CLS Outpatient Eliel Kline [id number] 12/08/2017 12:00:37 12/08/2017 23:59:59 CLS Outpatient Bermudez Cam [id number] 08/31/2017 08:57:51 08/31/2017 23:59:59 CLS Outpatient Bermudez Cam [id number] 08/24/2017 13:47:31 08/24/2017 23:59:59 CLS Outpatient Eliel Kline [id number] 11/13/2016 08:59:24 11/13/2016 23:59:59 CLS Outpatient Eliel Kline [id number] 10/21/2016 11:26:57 10/21/2016 23:59:59 CLS Outpatient Charlotte Rossi [id number] 10/16/2016 08:58:52 10/16/2016 23:59:59 CLS Outpatient Eliel Kline [id number] 10/06/2016 10:24:51 10/06/2016 23:59:59 CLS Outpatient Charlotte Rossi [id number] 07/18/2015 15:52:10 07/18/2015 23:59:59 CLS Outpatient Eliel Kline [id number] 06/12/2015 13:52:41 06/12/2015 23:59:59 CLS Outpatient Eliel Kline [id number] 05/15/2015 13:53:28 05/15/2015 23:59:59 CLS Outpatient Eliel Kline [id number] 04/15/2015 08:49:03 04/15/2015 23:59:59 CLS Outpatient Eliel Kline [id number] 03/18/2015 10:09:47 03/18/2015 23:59:59 CLS Outpatient Eliel Kline [id number] 02/12/2015 09:03:19 02/12/2015 23:59:59 CLS Outpatient Eliel Kline [id number] 07/01/2014 15:58:11 07/01/2014 23:59:59 CLS Outpatient Anahi Walker [id number] 04/26/2014 09:52:00 04/26/2014 23:59:59 CLS Outpatient Ishan Maloney [id number] 04/12/2014 17:00:22 04/12/2014 23:59:59 CLS Outpatient Ishan Maloney [id number] 05/13/2017 07:06:00 Document Registration [id number] 05/13/2017 08:09:00 Document Registration [id number] 05/05/2018 20:05:00 Document Registration [id number] 05/05/2017 09:07:00 Document Registration [id number] 05/05/2017 09:07:00 Document Registration [id number] 09/03/2017 15:25:35 Document Registration [id number] 05/04/2017 10:08:39 Document Registration [id number] 06/16/2018 10:08:00 06/16/2018 23:59:59 CLS Outpatient RASHMI SMALLS MD [facility] LABNPT O14.03 [id number] 03/08/2018 10:52:00 03/08/2018 14:11:00 DIS Outpatient RASHMI SMALLS MD [facility] WSo LEFT FLANK PAIN
[2018-06-23] MEDS ORDERED: D5 LR IV SOLUTION 1,000 ML IV SCH (07:44)
[2018-06-23] MEDS ORDERED: OXYTOCIN/NORMAL SALINE 500 ML IV SCH ×2 (07:44→11:54)
[2018-06-23] MEDS ORDERED: OXYTOCIN/NORMAL SALINE 0 ML IV ONE (07:44)
[2018-06-23 07:51] LABS: BASOPHILS % (AUTO) 0 % (0-10); EOSINOPHILS # (AUTO) 0.1 10^3/uL (0.0-0.3); EOSINOPHILS % (AUTO) 1 % (0-10); HEMATOCRIT 29 % (35-52); HEMOGLOBIN 9.2 G/DL (11.5-16.0); LYMPHOCYTES # (AUTO) 1.8 X 10^3 (1.0-4.0); LYMPHOCYTES % (AUTO) 19 % (12-44); MEAN CORPUSCULAR HEMOGLOBIN 25 PG (25-34); MEAN CORPUSCULAR HGB CONC 32 G/DL (32-36); MEAN CORPUSCULAR VOLUME 78 FL (80-99); MEAN PLATELET VOLUME 10.4 FL (7.4-10.4); MONOCYTES # (AUTO) 0.6 X 10^3 (0.0-1.0); MONOCYTES % (AUTO) 7 % (0-12); NEUTROPHILS # (AUTO) 6.8 X 10^3 (1.8-7.8); NEUTROPHILS % (AUTO) 73 % (42-75); PLATELET COUNT 288 10^3/uL (130-400); RED CELL DISTRIBUTION WIDTH 13.2 % (10.0-14.5); WHITE BLOOD COUNT 9.3 10^3/uL (4.3-11.0)
--- NOTE | 2018-06-23 07:51 | History & Physical ---
History and Physical Date Seen by Provider: Jun 23, 2018 Time Seen by Provider: 07:48 This patient is a 32-year-old 1 white female whose is a product of IUI. Her EDC is July 06, 2018 putting her now at 38-1/7 weeks gestation. Been followed in clinic for elevated amniotic fluid level in its early in the second trimester. Her most recent GARETT was 286. She is admitted now for induction of labor secondary to progressive polyhydramnios. She denies rupture membranes or bleeding. She's had no problems with his to date. Her GBS culture after 35 weeks gestation was negative. Allergies are none Medications are vitamins Medical social and surgical histories are per the antepartum record HEENT exam is normal Neck is supple no lymphadenopathy no thyromegaly Abdomen is soft nontender nondistended Extremities show no clubbing or cyanosis. There is no Homans sign. Pelvic exam is pending. Lab work is pending monitor is pending Assessment and plan term at 38 weeks gestation complicated by polyhydramnios in a patient who is morbidly obese. She is admitted now for labor induction with Pitocin. Anticipation is for vaginal delivery although patient is aware that her risk for delivery is slightly elevated both by her body habitus and her polyhydramnios plans preparations are in place for if needed. 38 week IUP as a result of IUI with polyhydramnios Allergies and Home Medications Allergies Coded Allergies: No Known Drug Allergies (Unverified , 03/08/18) Home Medications Calcium Carbonate/Vitamin D3 1 Each Tablet, 1 EACH PO DAILY, (Reported) Multivitamin 1 Each Tablet, 2 EACH PO DAILY, (Reported) Mmf878/FA/Omega3/Dha/Fish Oil 1 Each Tab.chew, 2 EACH PO DAILY, (Reported) Patient Home Medication List Home Medication List Reviewed: Yes RASHMI SMALLS MD Jun 23, 2018 07:50
[2018-06-23] MEDS ORDERED: CATHETER FLUSH 10 ML SYR IV PRN ×2 (08:00→11:00)
[2018-06-23] MEDS ORDERED: metroNIDAZOLE 500MG/100ML IVPB 100 ML IV NR ×2 (10:15→12:00)
[2018-06-23] MEDS ORDERED: ceFAZolin 2 GM IV Premixed 50 ML IV NR ×2 (10:15→12:15)
[2018-06-23] MEDS: LACTATED RINGERS 1,000 ML IV PRN ×2 (10:42→11:19)
[2018-06-23] MEDS ORDERED: METOCLOPRAMIDE INJ 10 MG/2 ML (REGLAN) IV ONE (11:00)
[2018-06-23] MEDS ORDERED: FAMOTIDINE 20MG/2ML IV (PEPCID) IV ONE (11:00)
[2018-06-23] MEDS ORDERED: CITRIC ACID/SOB CIT (BICITRA) 30 ML UDC PO ONE (11:00)
[2018-06-23 11:54] VITALS: BP 133/77
[2018-06-23] MEDS ORDERED: BUPIVACAINE SPINAL 0.75% (SENSORCAINE) 2 ML AMP ONE (11:54)
[2018-06-23] MEDS ORDERED: fentaNYL INJECTION 100 MCG/2 ML AMP ONE (11:54)
[2018-06-23] MEDS ORDERED: LIDOCAINE PF 2% 5 ML (XYLOCAINE) VIAL ONE (11:54)
[2018-06-23] MEDS ORDERED: OXYTOCIN/NORMAL SALINE 500 ML IV ONE (11:54)
[2018-06-23] MEDS ORDERED: ONDANSETRON 4 MG/2 ML (SDV) Z0FRAN ONE (11:54)
[2018-06-23] MEDS ORDERED: MEPERIDINE (DEMEROL) INJ 100 MG/ML IM PRN (12:00)
[2018-06-23] MEDS ORDERED: PROMETHAZINE INJ 25 MG/ML (PHENERGAN) AMP IM PRN (12:00)
[2018-06-23] MEDS ORDERED: ONDANSETRON 4 MG/2 ML (SDV) Z0FRAN IVP PRN (12:00)
[2018-06-23] MEDS ORDERED: TETANUS,DIPTH,PERTUSS P/F (BOOSTRIX) 0.5 ML VIAL IM ONE (12:00)
[2018-06-23] MEDS ORDERED: MEASLES,MUMPS,RUBELLA 1 EA INJ SC ONE (12:00)
[2018-06-23] MEDS ORDERED: KETAMINE HCL 100 MG/ML 5 ML VIAL ONE (12:23)
[2018-06-23] MEDS ORDERED: diphenhydrAMINE 50 MG/ML INJ (BENADRYL) IV PRN (13:15)
[2018-06-23] MEDS ORDERED: ONDANSETRON 4 MG/2 ML (SDV) Z0FRAN IV PRN (13:15)
[2018-06-23] MEDS ORDERED: NALOXONE 0.4 MG/ML 1 ML (NARCAN) VIAL IV PRN (13:15)
--- NOTE | 2018-06-23 14:15 | NUR ---
Pt to room 303 via bed accompanied by PACU staff. Pt oriented to room and call light. packet given. VS taken, IV pitocin to pump. Assessment completed. Pt resting, inquiring about pain medicine, options explained. Pt desires eating then taking oral pain pill. Will continue to monitor.
[2018-06-23 14:30] VITALS: BP 111/69
[2018-06-23] MEDS: KETOROLAC 30 MG/ML VIAL IVP SCH ×2 (14:51→21:56)
[2018-06-23 17:00] VITALS: BP 126/76
[2018-06-23] MEDS: oxyCODONE/APAP 10/325MG (PERCOCET 10) TABLET PO PRN (17:08)
--- NOTE | 2018-06-23 17:20 | NUR ---
Pt ambulates to bathroom, unable to fully void. Pericare performed, fresh vpad and underwear applied. Pt ambulates to [facility] to see accompanied by RN and S.O. without difficulty.
--- NOTE | 2018-06-23 17:50 | NUR ---
Pt ambulates self back to room from [facility].
[2018-06-23 21:56] VITALS: BP 138/71
[2018-06-23] MEDS: DOCUSATE SODIUM 100 MG (COLACE) CAP PO SCH (21:56)
--- NOTE | 2018-06-23 22:19 | OPERATIVE REPORT ---
DATE OF SERVICE: 06/23/2018 PREOPERATIVE DIAGNOSIS: Term at 38 weeks' gestation with polyhydramnios and transverse lie. POSTOPERATIVE DIAGNOSIS: Term at 38 weeks' gestation with polyhydramnios and transverse lie. OPERATIVE PROCEDURE: Primary low transverse delivery of a viable male infant with Apgars of 8 and 9 at 1 and 5 minutes respectively, weight of 6 pounds 14 ounces. time of 12:41 and a cord blood gas of 7.29. OPERATIVE DESCRIPTION: With the patient in the supine position under satisfactory spinal analgesia, the patient was prepped and draped in the usual fashion for abdominal surgery. After prepping the patient's large panniculus was elevated and suspended using towel clips and the abdominal wall in the upper lower quadrant on each side, attached distentions at the head of the bed. The patient was then draped and a Pfannenstiel incision made through the skin with a scalpel and the patient's abdomen was entered in the usual manner. Bladder retractor placed in position and clean scalpel used to make a 4 cm hysterotomy incision transversally across the lower uterine segment. Copious clear fluid was released on hysterotomy. The infant's right side was immediately under the incision with elevation from the left lower quadrant cephalad and with a downward pressure on the right lower quadrant into the pelvis. Internal cephalic version was easily accomplished and then Bhardwaj forceps were applied to facilitate the delivery of the via the uterine incision. The infant was bulb suctioned on delivery of the head and again on completion of delivery. Umbilical cord was doubly clamped and cut and the infant passed to Nelia Schaefer RN, the pediatric nurse in attendance for delivery. Cord bloods were obtained. The placenta delivered spontaneously Macario. It was a normal-appearing placenta, but had a large velamentous insertion of the vessels. Placenta was sent to pathology for permanent section secondary to her polyhydramnios. The uterus was exteriorized. The interior wiped clean with a wet laparotomy sponge. Uterine incision closed with a running locked suture of 2-0 Vicryl. Hemostasis was complete. The uterus was returned to the abdominal cavity. All blood clot and debris was removed from the abdominal cavity. Sponge and needle counts correct, hemostasis assured. The anterior parietal peritoneum was closed with running suture of 2-0 Vicryl. The rectus muscles were closed with that suture as well. The rectus fascia was closed with 2-0 Vicryl, subcutaneous tissue was closed with 2-0 Vicryl and the skin was stapled. Sponge and needle counts were correct on completion of the procedure. Estimated blood loss was around 600 mL. The patient tolerated the procedure well and was transferred to the recovery room in stable condition. The infant had been taken stable to the full-term nursery under the care of Georgiana mays. Job ID: [id number] DocumentID: [id number] Dictated Date: 06/23/2018 13:06:57 Scrap Hoist Operator Date: 06/23/2018 22:18:16 Dictated By: RASHMI SMALLS MD
[2018-06-24] MEDS: KETOROLAC 30 MG/ML VIAL IVP SCH (00:53)
[2018-06-24 00:55] VITALS: BP 117/75
[2018-06-24] MEDS ORDERED: SIMETHICONE 80 MG (MYLICON) CHEW ONE (03:06)
[2018-06-24] MEDS: oxyCODONE/APAP 10/325MG (PERCOCET 10) TABLET PO PRN ×3 (03:11→18:12)
[2018-06-24] MEDS: SIMETHICONE 80 MG (MYLICON) CHEW PO PRN ×3 (03:11→20:58)
[2018-06-24 05:00] VITALS: BP 130/84
--- NOTE | 2018-06-24 07:25 | NUR ---
Dr. Gallagher to room to see pt. No new orders rec'd at this time.
--- NOTE | 2018-06-24 07:30 | Progress Note-Standard ---
Standard Progress Note Progress Notes/Assess & Plan Date Seen by a Provider: Jun 24, 2018 Time Seen by a Provider: 07:29 Progress/Assessment & Plan This patient is without complaint. She is ambulating, voiding, tolerating oral intake well, has good pain control. Patient denies chest pain, denies shortness of breath, denies nausea vomiting, and denies headache. Vital Signs 06/24/18 05:00 Temp 98.0 Pulse 102 Resp 18 B/P (MAP) 130/84 (99) Pulse Ox 98 O2 Delivery Room Air Vital signs are stable. Patient is afebrile. The abdomen is benign. Fundus is firm below the umbilicus and nontender. The surgical incision is clean dry and intact. Extremities show no clubbing cyanosis. There is no Homans sign. Assessment and plan postoperative day number 1 status post primary delivery due to transverse lie in a patient with polyhydramnios at 38 weeks gestation. Plan is for routine convalescence care RASHMI SMALLS MD Jun 24, 2018 07:30
[2018-06-24] MEDS ORDERED: OXYC1TAB12 PO (07:32)
[2018-06-24] MEDS ORDERED: DOCU100C37 PO (07:32)
--- NOTE | 2018-06-24 07:33 | Discharge Instructions ---
Discharge Instructions Discharge Medications New, Converted or Re-Newed RX: RX on Chart Patient Instructions Patient Instructions: DIRECTED Return to The Hospital For: Directed Activity & Diet Discharge Diet: No Restrictions Activity as Tolerated: No Orders-Post D/C & Referrals Follow Up Appt: RTC 1 week for incision check. Call to make follow up appt. for patient in 4 weeks. Wound Care: Remove johnny, apply benzoin and steri strips. Activity Per routine post instructions. Diet as tolerated Patient may shower or tub bathe as desired. Continue home meds RASHMI SMALLS MD Jun 24, 2018 07:33
[2018-06-24] MEDS: DOCUSATE SODIUM 100 MG (COLACE) CAP PO SCH ×2 (09:42→20:58)
[2018-06-24 09:48] VITALS: BP 120/77
[2018-06-24 12:00] VITALS: BP 128/66
[2018-06-24] MEDS ORDERED: IBUPROFEN 800 MG (MOTRIN) TAB PO SCH (12:00)
[2018-06-24 18:12] VITALS: BP 136/72
[2018-06-24 23:30] VITALS: BP 141/77
[2018-06-25] MEDS: oxyCODONE/APAP 10/325MG (PERCOCET 10) TABLET PO PRN ×4 (00:19→23:09)
[2018-06-25 06:27] VITALS: BP 126/75
--- NOTE | 2018-06-25 07:45 | NUR ---
THIS RN INTRODUCES SELF TO PT & SO. PHYSICAL ASSESSMENT COMPLETE. PT DENIES NEEDS AT THIS TIME. CALL LIGHT WITHIN REACH.
[2018-06-25 08:00] VITALS: BP 131/72
[2018-06-25] MEDS: DOCUSATE SODIUM 100 MG (COLACE) CAP PO SCH (08:09)
--- NOTE | 2018-06-25 09:22 | Progress Note-Standard ---
Standard Progress Note Progress Notes/Assess & Plan Date Seen by a Provider: Jun 25, 2018 Time Seen by a Provider: 09:21 Progress/Assessment & Plan This patient is without complaint. She is ambulating, voiding, tolerating oral intake well, has good pain control. Patient denies chest pain, denies shortness of breath, denies nausea vomiting, and denies headache. Vital Signs 06/24/18 05:00 Temp 98.0 Pulse 102 Resp 18 B/P (MAP) 130/84 (99) Pulse Ox 98 O2 Delivery Room Air Vital signs are stable. Patient is afebrile. The abdomen is benign. Fundus is firm below the umbilicus and nontender. The surgical incision is clean dry and intact. Extremities show no clubbing cyanosis. There is no Homans sign. Assessment and plan postoperative day number 1 status post primary delivery due to transverse lie in a patient with polyhydramnios at 38 weeks gestation. Plan is for routine convalescence care June 25, 2018 Patient without complaint she is ambulating, voiding, tolerating oral intake well, has good pain control. Vital Signs Date Time Temp Pulse Resp B/P (MAP) Pulse Ox O2 Delivery O2 Flow Rate FiO2 06/25/18 08:00 97.2 98 18 131/72 (91) 90 Room Air 06/25/18 06:27 98.0 98 18 126/75 (92) 96 06/24/18 23:30 96.8 101 20 141/77 (98) 97 06/24/18 18:12 97.7 120 16 136/72 (93) 98 Room Air 06/24/18 12:00 98.5 91 16 128/66 (86) 99 06/24/18 09:48 98.2 87 18 120/77 (91) 98 I & O 06/25/18 07:00 Intake Total 1686 ml Output Total 1500 ml Balance 186 ml Vital signs are stable. Patient is afebrile. The abdomen is benign. The surgical incision is clean dry and intact. Fundus is firm below the umbilicus and nontender. Extremities show no clubbing or cyanosis. There is no Homans sign. Assessment and plan postoperative day number 2 status post primary doing well. Plan is for discharge home today or tomorrow as patient prefers Final Diagnosis 38 week primary delivery RASHMI SMALLS MD Jun 25, 2018 09:22
[2018-06-25 13:22] VITALS: BP 124/82
--- NOTE | 2018-06-25 19:10 | NUR ---
REPORT GIVEN TO LAKHWINDER BENOIT
[2018-06-25 20:00] VITALS: BP 151/92
--- NOTE | 2018-06-25 20:00 | NUR ---
Rn to room, pt sitting up in bed with . Denies needs at this time.
--- NOTE | 2018-06-25 22:00 | NUR ---
Visitors leaving at this time, pt denies needs.
[2018-06-26 02:00] VITALS: BP 118/67
--- NOTE | 2018-06-26 02:01 | NUR ---
mother laying in bed awake holding . VSS, denies needs at this time, placed in open crib.
[2018-06-26 08:30] VITALS: BP 134/66
--- NOTE | 2018-06-26 08:45 | NUR ---
Dr. Gallagher here to see pt.
--- NOTE | 2018-06-26 08:52 | Progress Note-Standard ---
Standard Progress Note Progress Notes/Assess & Plan Date Seen by a Provider: Jun 26, 2018 Time Seen by a Provider: 08:51 Progress/Assessment & Plan This patient is without complaint. She is ambulating, voiding, tolerating oral intake well, has good pain control. Patient denies chest pain, denies shortness of breath, denies nausea vomiting, and denies headache. Vital Signs 06/24/18 05:00 Temp 98.0 Pulse 102 Resp 18 B/P (MAP) 130/84 (99) Pulse Ox 98 O2 Delivery Room Air Vital signs are stable. Patient is afebrile. The abdomen is benign. Fundus is firm below the umbilicus and nontender. The surgical incision is clean dry and intact. Extremities show no clubbing cyanosis. There is no Homans sign. Assessment and plan postoperative day number 1 status post primary delivery due to transverse lie in a patient with polyhydramnios at 38 weeks gestation. Plan is for routine convalescence care June 25, 2018 Patient without complaint she is ambulating, voiding, tolerating oral intake well, has good pain control. Vital Signs Date Time Temp Pulse Resp B/P (MAP) Pulse Ox O2 Delivery O2 Flow Rate FiO2 06/25/18 08:00 97.2 98 18 131/72 (91) 90 Room Air 06/25/18 06:27 98.0 98 18 126/75 (92) 96 06/24/18 23:30 96.8 101 20 141/77 (98) 97 06/24/18 18:12 97.7 120 16 136/72 (93) 98 Room Air 06/24/18 12:00 98.5 91 16 128/66 (86) 99 06/24/18 09:48 98.2 87 18 120/77 (91) 98 I & O 06/25/18 07:00 Intake Total 1686 ml Output Total 1500 ml Balance 186 ml Vital signs are stable. Patient is afebrile. The abdomen is benign. The surgical incision is clean dry and intact. Fundus is firm below the umbilicus and nontender. Extremities show no clubbing or cyanosis. There is no Homans sign. Assessment and plan postoperative day number 2 status post primary doing well. Plan is for discharge home today or tomorrow as patient prefers June 26, 2018 Patient is without complaint. She is ambulating, voiding, tolerating oral intake well, has good pain control and is requesting discharge home. Vital Signs Date Time Temp Pulse Resp B/P (MAP) Pulse Ox O2 Delivery O2 Flow Rate FiO2 06/26/18 02:00 96.7 83 18 118/67 (84) 98 Room Air 06/25/18 20:00 96.8 120 18 151/92 (111) 98 Room Air 06/25/18 13:22 98.9 95 16 124/82 (96) 97 Room Air I & O 06/26/18 07:00 Intake Total 1800 ml Balance 1800 ml Vital signs are stable. Patient is afebrile. The abdomen is benign Extremities show no clubbing or cyanosis. There is no Homans sign. Assessment and plan postoperative day number 3 status post primary delivery doing well. Plan is for discharge home with follow-up in clinic Final Diagnosis 38 week primary delivery RASHMI SMALLS MD Jun 26, 2018 08:52
--- NOTE | 2018-06-26 08:55 | Discharge Summary ---
Discharge Summary 38 week primary delivery This patient is a 33-year-old 1 white female who was admitted on June 23, 2018 for labor induction. The fetus however was found to be in a transverse lie and decision made to proceed with delivery. was performed on that date uneventfully. Postoperative day number 1 the patient was ambulating, voiding, tolerating oral intake and had good pain control. Postoperative day number 2 was the same. The infrastructure project manager was not ready to release her baby Now postoperative day number 3 again the patient is ablating, voiding, tolerating oral intake and has good pain control. She feels ready for discharge home and the baby is ready for discharge as well. Principal diagnoses this hospitalization is 38 weeks primary delivery Secondary diagnoses are transverse lie, polyhydramnios, morbid obesity Operation procedures include monitoring, IV fluids, bedside ultrasound, spinal analgesia, primary delivery Patient was given appropriate discharge instructions verbally and in writing and a copy those are placed in the chart. Discharge medications are Percocet and Colace. Patient is continue taking her own vitamins Clinical Quality Measures DVT/VTE Risk/Contraindication: Risk Factor Score Per Nursin RFS Level Per Nursing on Admit: 3=High RASHMI SMALLS MD Jun 26, 2018 08:55
--- NOTE | 2018-06-26 12:10 | NUR ---
[place] removed from incision and incision covered with steri-strips. Pt tolerates procedure well. Extra strips sent home with pt and pt educated on use if need to replace. Discharge instructions explained to pt with copy provided to pt along with prescriptions. Pt notified of follow up appts. Pt verbalizes understanding of instructions and signs to verify. No questions or concerns at this time. Extra pads and bath packs provided per pt request.
--- NOTE | 2018-06-26 15:15 | NUR ---
Pt ambulates off unit to private vehicle accompanied by RN, S.O., infant. All personal belongings with pt. No s/s of distress noted.
== END 2018-06-26 15:15 | disposition home or self-care (01) | DRG 788 ==
LOC: LDRP 07:00
PROVIDERS: ADMIT Obstetrics & Gynecology; ATTEND Obstetrics & Gynecology
PROC: 10D00Z1 Extraction of Products of Conception, Low, Open Approach (ICD-10-PCS; principal; 2018-06-23 12:10)
DX: O40.3XX0 Polyhydramnios, third trimester, not applicable or unspecified (principal); O32.2XX0 Maternal care for transverse and oblique lie, not applicable or unspecified; O99.213 Obesity complicating pregnancy, third trimester; E66.01 Morbid (severe) obesity due to excess calories; O99.843 Bariatric surgery status complicating pregnancy, third trimester; O09.813 Supervision of pregnancy resulting from assisted reproductive technology, third trimester; Z3A.38 38 weeks gestation of pregnancy; Z37.0 Single live birth
CPT/HCPCS: 36415; 85025; 86850; 86900; 86901; 87081; 88307

== ENCOUNTER → 2019-02-07 | Outpatient (CLI) | payer BC, OTHER ==
[~2019-02-07] MED LIST changes: +DOCU100C37 PO; +OXYC1TAB12 PO
--- NOTE | 2019-02-07 13:57 | Diagnostic Imaging Report ---
INDICATION: survey. TECHNIQUE: Multiple real-time grayscale images were obtained over the gravid uterus. COMPARISON: None. FINDINGS: There is a single live fetus in cephalic presentation. heart rate was recorded 160 beats per minute. Placenta is posterior. The amniotic fluid volume appears normal. survey demonstrates bladder and stomach to be unremarkable. Kidneys are not well visualized due to position. brain is unremarkable. There is a four-chambered heart. There is a three-vessel cord with normal insertion. The spine is unremarkable. Biometrical measurements are as follows: Biparietal 4.7 cm, age 20 weeks 2 days. Head circumference 17.3 cm, age 20 weeks 0 days. Abdominal circumference 14.8 cm, age 20 weeks 1 days. Femur length 3.2 cm, age 20 weeks 0 days. Sonographic estimate age: 20 weeks 1 days. Sonographic estimated date of delivery: 06/26/19. Estimated Weight: 326 gm (+/- 48 gm). LMP percentile: 45%%. heart rate: 160 beats per minute. number: 1 of 1. IMPRESSION: Single live IUP 20 weeks 1 day gestational age. Estimated date of confinement sonographically is 06/26/2019. survey is unremarkable, although kidneys were poorly visualized due to position. Dictated by: Dictated on workstation # [id number]
== END ==
LOC: RAD 10:15
PROVIDERS: ATTEND Obstetrics & Gynecology
DX: Z34.92 Encounter for supervision of normal pregnancy, unspecified, second trimester (principal); Z3A.20 20 weeks gestation of pregnancy
CPT/HCPCS: 76805

== ENCOUNTER 2019-06-09 05:36 | Outpatient (CLI) | payer OTHER ==
[~2019-06-09] VITALS: Ht 167 cm; Wt 125.0 kg
== END 2019-06-09 12:55 | disposition home or self-care (01) ==
LOC: PREOP 05:36
PROVIDERS: ATTEND Obstetrics & Gynecology
DX: Z01.818 Encounter for other preprocedural examination (principal)

== ENCOUNTER 2019-06-20 10:10 | Inpatient (IN) | payer OTHER ==
[~2019-06-20] VITALS: Ht 167.7 cm; Wt 127.9 kg
[2019-06-20] VITALS (10 sets, daily range): BP systolic 104–132; BP diastolic 54–73
[~2019-06-20 10:10] MED LIST changes: +CITRIC ACID/SOB CIT (BICITRA) 30 ML UDC PO ONE; +FAMOTIDINE 20MG/2ML IV (PEPCID) IV ONE; +LACTATED RINGERS 1,000 ML IV SCH; +METOCLOPRAMIDE INJ 10 MG/2 ML (REGLAN) IV ONE; +ceFAZolin INJECTION 1,000 MG in WATER (STERILE) FOR INJECTION 10 ML IV ONE
--- NOTE | 2019-06-20 10:17 | NUR ---
KAITLYNN LU presented to unit via ambulatory from registration , accompanied by spouse Fredi, with c/o PREVIOUS . KAITLYNN LU weighed, gowned, voided, and to bed. EFHM and TOCO applied, VS taken. KAITLYNN LU oriented to bed controls, call light, TV, heat, and A/C controls.
--- NOTE | 2019-06-20 10:55 | History & Physical-OB ---
OB - Chief Complaint & HPI Date/Time Date of Admission: Date of Admission: Jun 20, 2019 at 10:10 Date seen by a Provider: Jun 20, 2019 Time Seen by a Provider: 11:10 Chief Complaint/History OB-Reason for Admission/Chief: Section Hx : 2 Hx Para: 1 Expected Date of Delivery: Jun 27, 2019 Gestational Age in Weeks: 39 Indication for : desires repeat Admission Nurse Assessment Rev: Yes History of Labs O pos Antibody neg RI RPR NR HBsAg NR HIV NR GC neg GBS neg Allergies and Home Medications Allergies Coded Allergies: No Known Drug Allergies (Unverified , 06/09/19) Home Medications Plj710/FA/Omega3/Dha/Fish Oil 1 Each Tab.chew, 2 EACH PO DAILY, (Reported) Patient Home Medication List Home Medication List Reviewed: Yes OB - History Hx of Present Care: Yes Ultrasounds: Normal mid trimester US Obstetrical Complications: None Medical Complications: None Delivery History Adverse Rxn to Tranfusion: No (N/A) Patient Past Medical History n/a Social History/Family History HIV/AIDS: No Sexually Transmitted Disease: No Immunizations Hepatitis A: Yes Hepatitis B: Yes Date of Influenza Vaccine: Mar 27, 2019 OB - Admission Exam Physical Exam HEENT: NCAT Heart: Rhythm Normal Lungs: Clear Abdomen: Gravid Extremities: Normal Reflexes: Normal Heart Rate: 130's Accelerations: Accelerations Present Decelerations: No Decelerations Short Term Variability: Present Detention Variability: Average (6-25) Contractions on Admission: >10 Minutes Apart OB - Assessment/Plan/Diagnosis Assessment Assessment: section Admission Dx 34 yo @ 39 weeks Previous GBS neg Admission Status: Inpatient Order (span 2 midnights) Reason for Inpatient Admission: Repeat Plan Plan: Section REMA TOSCANO DO Jun 20, 2019 10:55
[2019-06-20] MEDS ORDERED: fentaNYL INJECTION 100 MCG/2 ML AMP ONE (11:06)
[2019-06-20] MEDS ORDERED: OXYTOCIN/NORMAL SALINE 1,000 ML IV ONE (11:09)
[2019-06-20 11:23] LABS: BASOPHILS % (AUTO) 0 % (0-10); EOSINOPHILS # (AUTO) 0.1 10^3/uL (0.0-0.3); EOSINOPHILS % (AUTO) 1 % (0-10); HEMATOCRIT 27 % (35-52); HEMOGLOBIN 8.1 G/DL (11.5-16.0); LYMPHOCYTES # (AUTO) 1.7 X 10^3 (1.0-4.0); LYMPHOCYTES % (AUTO) 21 % (12-44); MEAN CORPUSCULAR HEMOGLOBIN 23 PG (25-34); MEAN CORPUSCULAR HGB CONC 31 G/DL (32-36); MEAN CORPUSCULAR VOLUME 75 FL (80-99); MEAN PLATELET VOLUME 9.7 FL (7.4-10.4); MONOCYTES # (AUTO) 0.5 X 10^3 (0.0-1.0); MONOCYTES % (AUTO) 6 % (0-12); NEUTROPHILS # (AUTO) 5.7 X 10^3 (1.8-7.8); NEUTROPHILS % (AUTO) 72 % (42-75); PLATELET COUNT 269 10^3/uL (130-400); RED CELL DISTRIBUTION WIDTH 18.2 % (10.0-14.5); WHITE BLOOD COUNT 7.8 10^3/uL (4.3-11.0)
--- NOTE | 2019-06-20 11:25 | NUR ---
To OR ambulatory - accompanied by surgery staff.
[2019-06-20] MEDS ORDERED: OXYTOCIN/NORMAL SALINE 500 ML IV SCH (11:34)
[2019-06-20] MEDS ORDERED: MEASLES,MUMPS,RUBELLA 1 EA INJ SC SCH (11:45)
[2019-06-20] MEDS ORDERED: ONDANSETRON 4 MG/2 ML (SDV) Z0FRAN IVP PRN (11:45)
[2019-06-20] MEDS ORDERED: TETANUS,DIPTH,PERTUSS P/F (BOOSTRIX) 0.5 ML VIAL IM SCH (11:45)
[2019-06-20] MEDS ORDERED: ACHD5005 PO (11:46)
[2019-06-20] MEDS ORDERED: DOCU100C37 PO (11:46)
[2019-06-20] MEDS ORDERED: IBUP-844 PO (11:46)
--- NOTE | 2019-06-20 11:47 | Discharge Inst-Women's Service ---
Discharge Inst-Women's Serv Depart Medication/Instructions New, Converted or Re-Newed RX: RX on Chart Problems Reviewed?: Yes Consults/Follow Up Additional Follow Up: Yes Orders/Referrals Dr. Beach in 7-10 days and in 6 weeks Activity Activity: Activity as Tolerated Driving Instructions: No Driving for 1 Week NO SMOKING: NO SMOKING Nothing Inside Vagina: No Douching, No [place], No Tampons Diet Discharge Diet: No Restrictions Symptoms to Report to : Bleeding Excessive, Pain Increased, Fever Over 101 Degrees F, Vaginal Bleeding Increase, Questions/Concerns For Any Problems or Questions: Contact Your Physician Skin/Wound Care Infection Signs and Symptoms: Increased Redness, Foul Odor of Wound, Increased Drainage, Skin Itchy or Has a Rash, Increased Swelling, Temperature Above 101 F Operative Area Clean and Dry: Keep Incision Clean/Dry Stitches/Nicholas/Dermabond: Dermabond, Care of Stitches Bathing Instructions: REMA Rick DO Jun 20, 2019 11:47
[2019-06-20] MEDS ORDERED: IBUPROFEN 600 MG (MOTRIN) TAB PO SCH (12:00)
[2019-06-20] MEDS ORDERED: PHENYLEPHRINE 100 MCG/ML 10 ML (ANESTHESIA) SYR ONE (12:26)
[2019-06-20] MEDS: KETOROLAC 30 MG/ML VIAL IV SCH ×2 (13:29→19:08)
--- NOTE | 2019-06-20 14:10 | NUR ---
Transferred to room 313. accompanied pt. [id number] Up to BR - ambulated well. Voided 100ml. Drinking and eating without difficulty. To nursery to see .
[2019-06-20] MEDS ORDERED: BUPIVACAINE 0.5% 30 ML (SENSORCAINE) VIAL ONE (14:26)
--- NOTE | 2019-06-20 14:30 | NUR ---
2nd bag of NS/Pitocin completed. (Hung in OR). LR initiated via pump.
[2019-06-20] MEDS: LACTATED RINGERS 1,000 ML IV SCH (15:35)
[2019-06-20] MEDS: HYDROcodone/APAP 5 MG/325 MG (LORTAB) TAB PO PRN ×2 (15:37→21:18)
--- NOTE | 2019-06-20 19:19 | OPERATIVE REPORT ---
DATE OF SERVICE: PREOPERATIVE DIAGNOSES: 1. A 34-year-old G2, P1 at 39 weeks gestation. 2. Previous section. POSTOPERATIVE DIAGNOSES: 1. A 34-year-old G2, P1 at 39 weeks gestation. 2. Previous section. PROCEDURE: Repeat low transverse section. SURGEON: Rio Toscano DO RETAIL LOSS PREVENTION OFFICER: Nano Underwood DNP, who was necessary for vital retraction and manipulation throughout the procedure. ANESTHESIA: Spinal. ESTIMATED BLOOD LOSS: 500 mL. URINE OUTPUT: 20 mL clear at the end of the procedure. FINDINGS: A live male infant weighing 7 pounds 6 ounces, Apgars of 8 and 9. Grossly normal appearing uterus, bilateral fallopian tubes and ovaries. SPECIMEN SENT: None. INDICATIONS FOR PROCEDURE: This 34-year-old female is a patient who had sought care in my office. She desired repeat and we planned for this throughout her entire . Her was uncomplicated and she progressed to 39 weeks at which point we scheduled her surgery. Risks of the procedure were discussed with the patient in detail and had been counseled extensively with the patient prior to the procedure. After all of her questions were answered, consent was obtained, the patient was taken to the operating room. OPERATIVE REPORT IN DETAIL: Once in the operating room, spinal anesthesia was found to be adequate, placed in supine position with leftward tilt, prepped and draped in normal sterile fashion. A timeout was performed and anesthesia was tested. A Pfannenstiel skin incision was then made through the previously existing scar using a knife and carried down to underlying fascia using Bovie cautery. The fascial incision extended laterally using Bovie cautery. Superior aspect of fascial incision was then grasped with Catherine clamps, tented up and dissected off the underlying rectus muscles. The inferior aspect of the fascial incision was then grasped with Catherine clamps, tented up and dissected off the underlying rectus muscles. The rectus muscle was then dissected down the midline using Dixon scissors, which exposed the peritoneum, which I entered bluntly and extended using blunt traction. Jerson ring retractor was placed in the peritoneal incision, which offers excellent lateral sidewall retraction. I then identified the lower uterine segment, which was found to be thinned out and make a low transverse incision into the vesicouterine peritoneum and bluntly dissected off the lower uterine segment. I proceeded with my myotomy until membranes were visualized, extended the uterine incision laterally and superiorly using bandage scissors. Amniotomy was then performed using an Allis clamp. Clear fluid was noted. The infant was found in the vertex presentation. With gentle fundal pressure, the 's head was elevated up the incision where it was delivered. The nares and oropharynx were then bulb suctioned. Anterior and posterior shoulders were delivered. The infant was then brought to the operative field where the cord was doubly clamped and cut and infant was handed off to waiting nurses in attendance. Cord blood was collected. Three-vessel cord with intact placenta was delivered spontaneously thereafter. IV Pitocin was initiated to facilitate uterine contraction. Uterine fundus became firmer by manual massage. Uterus was then exteriorized and cleared off endometrial clots and debris. I then proceeded with closing the uterine incision using 0 Vicryl suture in a running locked fashion. Second layer of imbricating 0 Monocryl was placed. Excellent hemostasis was noted after doing this. I then placed the uterus back in the pelvis and copiously irrigated the pelvis using normal saline. Once again, there was no active bleeding noted from any of my dissection planes. I placed Interceed antiadhesive over my low transverse incision and proceeded with closing the peritoneum after removing the Jerson ring retractor. The peritoneum was reapproximated using 3-0 Vicryl suture in a running fashion. The rectus muscle was reapproximated using 3-0 Vicryl suture in interrupted fashion. The fascia was reapproximated using 0 Vicryl suture in running fashion. The subcutaneous tissue was reapproximated using 3-0 plain interrupted subcutaneous stitch and skin reapproximated using 4-0 Monocryl in a running subcuticular. Dermabond was applied to incision and sterile dressing was adhesed with white tape. The patient tolerated the procedure well and was taken to recovery area in stable condition. Lap and sponge count was correct at the end of procedure. Instrument count was correct as well. Two grams of Ancef were given preoperatively for infection prophylaxis. Job ID: [id number] DocumentID: [id number] Dictated Date: 06/20/2019 12:48:57 Clinical Faculty Date: 06/20/2019 19:18:52 Dictated By: RIO TOSCANO DO
[2019-06-20] MEDS: DOCUSATE SODIUM 100 MG (COLACE) CAP PO SCH (21:19)
--- NOTE | 2019-06-20 22:30 | NUR ---
Dr. Beach called and informed that pt is in tears and stating that her pain medication isn't helping at all with her pain. Informed that pt is rating pain at 8-9. Vitals reviewed. orders 1mg of Dilaudid to be given q3h PRN for breakthrough pain.
[2019-06-20] MEDS ORDERED: HYDROmorphone 2 MG/ML VIAL (DILAUDID) IV PRN (22:45)
[2019-06-21] MEDS: KETOROLAC 30 MG/ML VIAL IV SCH ×2 (01:25→16:00)
--- NOTE | 2019-06-21 02:43 | NUR ---
Pt. is up and walking around in room. States that her pain is much more tolerable at this time, but would still like to take her pain meds when they are do at 0300. Pt. up to bathroom at this time.
[2019-06-21 03:12] VITALS: BP 129/72
[2019-06-21] MEDS: HYDROcodone/APAP 5 MG/325 MG (LORTAB) TAB PO PRN ×3 (03:14→16:40)
[2019-06-21 06:12] VITALS: BP 134/75
[2019-06-21 06:48] LABS: BASOPHILS % (AUTO) 0 % (0-10); EOSINOPHILS % (AUTO) 0 % (0-10); HEMATOCRIT 25 % (35-52); HEMOGLOBIN 7.4 G/DL (11.5-16.0); LYMPHOCYTES # (AUTO) 0.9 X 10^3 (1.0-4.0); LYMPHOCYTES % (AUTO) 11 % (12-44); MEAN CORPUSCULAR HEMOGLOBIN 23 PG (25-34); MEAN CORPUSCULAR HGB CONC 30 G/DL (32-36); MEAN CORPUSCULAR VOLUME 76 FL (80-99); MONOCYTES # (AUTO) 0.3 X 10^3 (0.0-1.0); MONOCYTES % (AUTO) 4 % (0-12); NEUTROPHILS # (AUTO) 6.8 X 10^3 (1.8-7.8); NEUTROPHILS % (AUTO) 85 % (42-75); PLATELET COUNT 227 10^3/uL (130-400); RED CELL DISTRIBUTION WIDTH 18.3 % (10.0-14.5); WHITE BLOOD COUNT 8.1 10^3/uL (4.3-11.0)
--- NOTE | 2019-06-21 09:42 | Postpartum Progress Note ---
Note Note Day # 1 Subjective: Patient is without complaints. Ambulating, voiding. Tolerating a regular diet without nausea or vomiting. Normal lochia. Pain is well controlled with oral pain medications. Objective: Physical Exam: General - Alert and oriented, no apparent distress Abdomen - Soft, appropriately tender to palpation, non-distended, fundus firm at umbilicus Extremities - no edema, negative Dominguez's bilaterally Incision- c/d/i Assessment: POD 1 RLTCS Acute blood loss anemia Plan: Routine care. Encourage breast feeding. Encourage ambulation. Ferrous sulfate supplementation. Plan for discharge tomorrow Vitals - Labs Vital Signs - I&O Vital Signs Date Time Temp Pulse Resp B/P (MAP) Pulse Ox O2 Delivery O2 Flow Rate FiO2 06/21/19 06:12 36.3 86 18 134/75 (94) 98 Room Air 06/21/19 03:12 36.9 76 18 129/72 (91) 99 Room Air 06/20/19 22:45 36.8 85 18 130/70 (90) 98 Room Air 06/20/19 19:00 37.2 102 18 113/58 (76) 99 Room Air 06/20/19 16:45 36.9 80 18 132/73 (92) 100 Room Air 06/20/19 16:32 Room Air 06/20/19 15:20 37.0 91 18 114/69 (84) 100 Room Air 06/20/19 14:00 36.6 2 104/66 (79) 100 Room Air 06/20/19 13:45 36.6 17 104/60 (75) 100 Room Air 06/20/19 13:30 36.5 18 112/71 (85) 100 Room Air 06/20/19 13:15 36.4 18 105/60 (75) 100 Room Air 06/20/19 12:56 36.3 19 107/54 (71) 100 Room Air 06/20/19 10:30 36.3 84 20 97 Room Air I & O 06/21/19 07:00 Intake Total 1000 ml Output Total 20 ml Balance 980 ml Labs Laboratory Tests 06/20/19 11:11: White Blood Count 7.8, Red Blood Count 3.56L, Hemoglobin 8.1L, Hematocrit 27L, Mean Corpuscular Volume 75L, Mean Corpuscular Hemoglobin 23L, Mean Corpuscular Hemoglobin Concent 31L, Red Cell Distribution Width 18.2H, Platelet Count 269, Mean Platelet Volume 9.7, Neutrophils (%) (Auto) 72, Lymphocytes (%) (Auto) 21, Monocytes (%) (Auto) 6, Eosinophils (%) (Auto) 1, Basophils (%) (Auto) 0, Neutrophils # (Auto) 5.7, Lymphocytes # (Auto) 1.7, Monocytes # (Auto) 0.5, Eosinophils # (Auto) 0.1, Basophils # (Auto) 0.0 06/21/19 06:21: White Blood Count 8.1, Red Blood Count 3.26L, Hemoglobin 7.4L, Hematocrit 25L, Mean Corpuscular Volume 76L, Mean Corpuscular Hemoglobin 23L, Mean Corpuscular Hemoglobin Concent 30L, Red Cell Distribution Width 18.3H, Platelet Count 227, Mean Platelet Volume 10.0, Neutrophils (%) (Auto) 85H, Lymphocytes (%) (Auto) 11L, Monocytes (%) (Auto) 4, Eosinophils (%) (Auto) 0, Basophils (%) (Auto) 0, Neutrophils # (Auto) 6.8, Lymphocytes # (Auto) 0.9L, Monocytes # (Auto) 0.3, Eosinophils # (Auto) 0.0, Basophils # (Auto) 0.0 REMA TOSCANO DO Jun 21, 2019 09:42
[2019-06-21 10:45] VITALS: BP 121/74
[2019-06-21] MEDS ORDERED: IBUPROFEN 600 MG (MOTRIN) TAB PO SCH (12:00)
[2019-06-21 16:00] VITALS: BP 117/72
[2019-06-21] MEDS ORDERED: KETOROLAC 30 MG/ML VIAL ONE (16:02)
--- NOTE | 2019-06-21 17:28 | Anesthesia-Regional Post-Op ---
Regional Patient Condition Mental Status: Alert, Oriented x3 Circulation: Same as Pre-Op Headache: Absent Sensation: Full Recovery Motor Block: Absent Post Op Complications Complications None Follow Up Care/Instructions Patient Instructions None needed. Anesthesia/Patient Condition Patient is doing well, no complaints, stable vital signs, no apparent adverse anesthesia problems. No complications reported per nursing. ABNER PRITCHETT CRNA Jun 21, 2019 17:28
--- NOTE | 2019-06-21 20:50 | NUR ---
PT AMB TO ICE MACHINE.
[2019-06-21 21:00] VITALS: BP 115/68
--- NOTE | 2019-06-21 21:00 | NUR ---
COMPLETE SHIFT ASSESSMENT DONE. PAIN MANAGEMENT DISCUSSED. WILL TRY TO GET PAIN MEDS STAGGERED THROUGHOUT NIGHT FOR BETTER PAIN CONTROL.
[2019-06-21] MEDS: DOCUSATE SODIUM 100 MG (COLACE) CAP PO SCH (21:04)
--- NOTE | 2019-06-21 22:05 | NUR ---
TORADOL ADMINISTERED PT PT REQUEST. WILL RE-EVALUATE PAIN NEEDS AT 0000 TO DETERMINE WHEN TO ADMINISTER LORTAB.
[2019-06-21] MEDS: KETOROLAC 30 MG/ML VIAL IVP PRN (22:10)
--- NOTE | 2019-06-22 | NUR ---
PT REPORTS PAIN HAS BEEN CONTROLLED BY TORADOL AT THIS TIME AND WOULD LIKE TO HOLD OFF ON LORTAB. WILL RETURN TO RE-EVALUATE IN 1 HOUR.
[2019-06-22] MEDS: HYDROcodone/APAP 5 MG/325 MG (LORTAB) TAB PO PRN ×3 (01:02→13:32)
--- NOTE | 2019-06-22 01:02 | NUR ---
PT REQUESTS LORTAB. 2 TAB ADMINISTERED.
--- NOTE | 2019-06-22 01:15 | NUR ---
PT AMB DOWNSTAIRS TO VENDING [facility]. REPORTS PAIN CONTROLLED AND DENIES ANY NEEDS.
[2019-06-22 04:10] VITALS: BP 127/56
[2019-06-22] MEDS: KETOROLAC 30 MG/ML VIAL IVP PRN ×2 (04:10→10:22)
--- NOTE | 2019-06-22 04:10 | NUR ---
PT REQUESTS TORADOL AT THIS TIME FOR INCISIONAL TENDERNESS AND CRAMPING.
[2019-06-22 07:30] VITALS: BP 115/56
--- NOTE | 2019-06-22 07:30 | NUR ---
Patient awake in room. Finished with breakfast. Complains of pain. Shift assessment done. Requests pain meds. VS checked. Incision checked. Plan for today discussed.
--- NOTE | 2019-06-22 07:56 | Postpartum Progress Note ---
Note Note Day # 2 Subjective: Patient is without complaints. Ambulating, voiding. Tolerating a regular diet without nausea or vomiting. Normal lochia. Pain is well controlled with oral pain medications. Objective: Physical Exam: General - Alert and oriented, no apparent distress Abdomen - Soft, appropriately tender to palpation, non-distended, fundus firm at umbilicus Extremities - no edema, negative Dominguez's bilaterally Incision- c/d/i Assessment: POD 2 RLTCS Acute blood loss anemia Plan: Routine care. Encourage breast feeding. Encourage ambulation. Ferrous sulfate supplementation. Plan for discharge today Vitals - Labs Vital Signs - I&O Vital Signs Date Time Temp Pulse Resp B/P (MAP) Pulse Ox O2 Delivery O2 Flow Rate FiO2 06/22/19 04:10 36.4 80 18 127/56 (79) 96 Room Air 06/21/19 21:00 36.8 83 18 115/68 (84) 97 Room Air 06/21/19 16:00 37.0 92 18 117/72 (87) Room Air 06/21/19 10:45 36.9 88 18 121/74 (90) Room Air Labs Microbiology 06/20/19 MRSA Screen - Final, Complete MRSA not isolated RMEA TOSCANO DO Jun 22, 2019 07:56
--- NOTE | 2019-06-22 08:00 | NUR ---
Dr. Beach here. Discharge orders entered.
--- NOTE | 2019-06-22 08:30 | NUR ---
Patient states desire to sleep at this time. remains in room. Will prepare discharge for whenever patient requests.
[2019-06-22] MEDS: LACTATED RINGERS 1,000 ML IV SCH ×2 (09:52→09:56)
--- NOTE | 2019-06-22 10:20 | NUR ---
Time for toradol pain med. Patient has been asleep. Med given routinely at patient request to keep pain under control. States is passing flatus easily now, no BM yet.
[2019-06-22] MEDS: CATHETER FLUSH 10 ML SYR IV SCH ×2 (10:22→10:27)
[2019-06-22] MEDS: DOCUSATE SODIUM 100 MG (COLACE) CAP PO SCH (10:23)
--- NOTE | 2019-06-22 12:30 | NUR ---
Patient up, and showered. Ordered [employer] dinner.
[2019-06-22 13:00] VITALS: BP 134/70
--- NOTE | 2019-06-22 13:15 | NUR ---
Saline lock removed. No signs of inflammation at site.
--- NOTE | 2019-06-22 13:30 | NUR ---
Dismissal instructions reviewed with patient. States understanding. Prescriptions given. Patient refuses ibuprofen prescription r/t hx of previous gastric bypass surgery, and states can not take it. Encouraged to eat good diet, to increase HGB. Patient is asymptomatic with low HGB level.
[2019-06-22 14:05] VITALS: BP 134/70
--- NOTE | 2019-06-22 14:05 | NUR ---
Dismissed ambulatory with , baby, and staff to hospital exit, to private car. No apparent distress.
== END 2019-06-22 14:05 | disposition home or self-care (01) | DRG 787 ==
LOC: LDRP 10:10
PROVIDERS: ADMIT Obstetrics & Gynecology; ATTEND Obstetrics & Gynecology
PROC: 10D00Z1 Extraction of Products of Conception, Low, Open Approach (ICD-10-PCS; principal; 2019-06-20 11:33)
DX: O34.211 Maternal care for low transverse scar from previous cesarean delivery (principal); O90.81 Anemia of the puerperium; D62 Acute posthemorrhagic anemia; O99.214 Obesity complicating childbirth; E66.01 Morbid (severe) obesity due to excess calories; Z3A.39 39 weeks gestation of pregnancy; Z37.0 Single live birth
CPT/HCPCS: 36415; 85025; 86850; 86900; 86901; 87081; 94664